=== PATIENT | male | born 1965 | race Caucasian/White ===

== ENCOUNTER 2017-08-08 06:33 | Day surgery (SDC) | payer BC ==
[~2017-08-08 06:33] MED LIST: Lactated Ringers 1,000 ML IV SCH
[2017-08-08] MEDS ORDERED: fentaNYL 100 MCG/2 ML SDV ONE (07:11)
[2017-08-08] MEDS ORDERED: Propofol 200 MG/20 ML SDV ONE ×2 (07:11→08:07)
[2017-08-08] MEDS ORDERED: Lidocaine 2% 5 ML SDV ONE (07:11)
[2017-08-08] MEDS ORDERED: Midazolam 1 MG/ML 2 ML SDV ONE (07:11)
--- NOTE | 2017-08-08 07:29 | PCM.PREANE ---
Preanesthetic Assessment - Anesthesia/Transfusion/Family Hx Anesthesia History: Prior Anesthesia Without Reaction Family History of Anesthesia Reaction: No Transfusion History: No Prior Transfusion(s) - Review of Systems General: No Symptoms Pulmonary: No Symptoms Cardiovascular: No Symptoms Gastrointestinal: No Symptoms Neurological: No Symptoms Other: Reports: None - Physical Assessment NPO Status Date: 08/07/17 O2 Sat by Pulse Oximetry: 94 Respiratory Rate: 16 Vital Signs: Last Vital Signs Temp 36.1 C 08/08/17 07:04 Pulse 97 08/08/17 07:04 Resp 16 08/08/17 07:04 BP 123/69 08/08/17 07:04 Pulse Ox 94 L 08/08/17 07:04 Height: 1.78 m Weight: 115.212 kg ASA Class: 2 Mental Status: Alert & Oriented x3 Airway Class: Mallampati = 1 Dentition: Reports: Normal Dentition ROM/Head Extension: Full Lungs: Clear to Auscultation, Normal Respiratory Effort Cardiovascular: Regular Rate, Regular Rhythm - Allergies Allergies/Adverse Reactions: Allergies Allergy/AdvReac Type Severity Reaction Status Date / Time No Known Allergies Allergy Verified 08/03/17 13:25 - Anesthesia Plan Pre-Op Medication Ordered: None - Acknowledgements Anesthesia Type Planned: MAC Pt an Appropriate Candidate for the Planned Anesthesia: Yes Alternatives and Risks of Anesthesia Discussed w Pt/Guardian: Yes Pt/Guardian Understands and Agrees with Anesthesia Plan: Yes Additional Comments: Hx of seizure disorder, no seizure for last 22 years. PreAnesthesia Questionnaire - Past Health History Medical/Surgical History: Denies Medical/Surgical History HEENT History: Reports: Other (See Below) Other HEENT History: wears glasses Cardiovascular History: Reports: None Respiratory History: Reports: None Gastrointestinal History: Reports: Cholelithiasis, GERD Genitourinary History: Reports: None Musculoskeletal History: Reports: Back Pain, Chronic Neurological History: Reports: Seizure Other Neuro History: Pt had 2 grand mal seizures 20 years ago and has not had one since. Psychiatric History: Reports: None Endocrine/Metabolic History: Reports: Obesity/BMI 30+ Hematologic History: Reports: None Immunologic History: Reports: None Oncologic (Cancer) History: Reports: None Dermatologic History: Reports: None - Infectious Disease History Infectious Disease History: Reports: Chicken Pox - Past Surgical History Head Surgeries/Procedures: Reports: None HEENT Surgical History: Reports: None Cardiovascular Surgical History: Reports: None Respiratory Surgical History: Reports: None GI Surgical History: Reports: None Male Surgical History: Reports: None Endocrine Surgical History: Reports: None Neurological Surgical History: Reports: None Musculoskeletal Surgical History: Reports: Carpal Tunnel, Shoulder Surgery, Other (See Below) Other Musculoskeletal Surgeries/Procedures:: Low back surgery, rotator cuff repair Dermatological Surgical History: Reports: None - SUBSTANCE USE Smoking Status *Q: Never Smoker Tobacco Use Within Last Twelve Months:  Second Hand Smoke Exposure: No Recreational Drug Use History: No - HOME MEDS Home Medications: Home Meds Phenytoin Sodium Extended [Dilantin] 300 mg PO BID 07/13/15 [History] Naproxen Sodium [Aleve] 220 mg PO ASDIRECTED PRN 07/30/15 [History] Acetaminophen [Acetaminophen Extra Strength] 2 tab PO ASDIRECTED PRN 08/03/17 [ History] Cholecalciferol (Vitamin D3) [Vitamin D3] 2,000 units PO DAILY 08/03/17 [History ] Fish Oil/DHA/EPA [Fish Oil 1,200 MG] 1 tab PO DAILY 08/03/17 [History] Ibuprofen 2 tab PO ASDIRECTED PRN 08/03/17 [History] - CURRENT (IN HOUSE) MEDS Current Meds: Current Medications Lactated Ringer's (Ringers, Lactated) 1,000 mls @ 125 mls/hr IV ASDIRECTED OSMAN Last Admin: 08/08/17 07:02 Dose: 125 mls/hr Discontinued Medications Fentanyl (Sublimaze) Confirm Administered Dose 100 mcg .ROUTE .STK-MED ONE Stop: 08/08/17 07:12 Lidocaine (Xylocaine-Mpf 2%) Confirm Administered Dose 5 ml .ROUTE .STK-MED ONE Stop: 08/08/17 07:12 Midazolam HCl (Versed 1 Mg/Ml) Confirm Administered Dose 2 mg .ROUTE .STK-MED ONE Stop: 08/08/17 07:12 Propofol (Diprivan 20 Ml) Confirm Administered Dose 400 mg .ROUTE .STK-MED ONE Stop: 08/08/17 07:12
[2017-08-08] MEDS ORDERED: Ondansetron 4 MG Tab.DIS PO PRN (08:39)
--- NOTE | 2017-08-08 08:44 | PCM.OPNOTE ---
- General Post-Op/Procedure Note Date of Surgery/Procedure: 08/08/17 Operative Procedure(s): Esophagogastroduodenoscopy with biopsy. Colonoscopy with cold ascending colon polypectomy Pre Op Diagnosis: Abdominal pain with progressive nocturnal heartburn. Desire for colorectal cancer screening. Post-Op Diagnosis: Mild duodenitis and gastritis. Ascending colon polyp. Anesthesia Technique: MAC (ASA II) Primary Surgeon: Aleksandr Beckford Transplant Immunologist: Basim Desir Condition: Good Free Text/Narrative:: Dictation [id number] CPT CODE [id number]
[2017-08-08] MEDS ORDERED: Lactated Ringers 1,000 ML IV SCH (09:00)
--- NOTE | 2017-08-08 09:21 | PCM.POSTAN ---
POST ANESTHESIA ASSESSMENT - MENTAL STATUS Mental Status: Alert, Oriented - RESPIRATORY Respiratory Status: Respiratory Rate WNL, Airway Patent, O2 Saturation Stable - CARDIOVASCULAR CV Status: Pulse Rate WNL, Blood Pressure Stable - GASTROINTESTINAL GI Status: No Symptoms - POST OP HYDRATION Hydration Status: Adequate & Stable
--- NOTE | 2017-08-08 09:21 | PCM48HPAN ---
Post Anesthesia Note - EVALUATION WITHIN 48HRS OF ANESTHETIC Vital Signs in Normal Range: Yes Patient Participated in Evaluation: Yes Respiratory Function Stable: Yes Airway Patent: Yes Cardiovascular Function Stable: Yes Hydration Status Stable: Yes Pain Control Satisfactory: Yes Nausea and Vomiting Control Satisfactory: Yes Mental Status Recovered: Yes Resp Rate: 13
[2017-08-08 09:23] VITALS: BP 122/66
--- NOTE | 2017-08-08 11:09 | OR ---
SURGEON: Aleksandr Beckford M.D. DATE OF PROCEDURE: 08/08/2017 OPERATION PERFORMED: Esophagogastroduodenoscopy with biopsy. RECORD TABULATING CLERK: Dr. Desir, PGY3. ANESTHESIA: MAC. [place] [employer] CLASSIFICATION: II. PREOPERATIVE DIAGNOSIS: Persistent abdominal pain with nocturnal heartburn. POSTOPERATIVE DIAGNOSIS: Mild gastritis. DESCRIPTION OF PROCEDURE: The patient was taken to the endoscopy room, positioned on the endoscopy table in the supine position. Time-out was called for appropriate identification of the patient and procedure. Monitored anesthesia care was provided. The bite block was placed between the patient's teeth. The gastroscope was inserted through the bite block into the oropharynx and advanced without difficulty through the esophagus and stomach into the duodenum where examination was now carried out in a retrograde fashion. The duodenum does show some mild inflammatory changes and biopsies were obtained. The gastroscope was withdrawn to the stomach that does show mild gastritis. Antral biopsies were obtained to look for the presence of Helicobacter pylori. The gastroscope was then retroflexed to visualize the proximal stomach. No hiatal hernia was noted. As the scope was withdrawn, the stomach was aspirated. The GE junction was well defined and shows no acute inflammatory changes or ulcerations. The esophagus demonstrated good contractility. No mid or proximal lesions were identified. The vocal cords were visualized as the scope was withdrawn and noted to move symmetrically. The gastroscope was then removed. The patient tolerated this portion of the procedure well. Following colonoscopy, he was taken to recovery room in stable condition. EMELYN / ERIC /[id number]
--- NOTE | 2017-08-08 11:15 | OR ---
SURGEON: Aleksandr Beckford M.D. DATE OF PROCEDURE: 08/08/2017 OPERATION PERFORMED: Colonoscopy with cold ascending colon polypectomy. ORNAMENTAL METAL ERECTOR APPRENTICE: Dr. Desir, PGY3. ANESTHESIA: MAC. [place] [employer] CLASSIFICATION: II. PREOPERATIVE DIAGNOSIS: Desire for colorectal cancer screening. POSTOPERATIVE DIAGNOSIS: Ascending colon polyp. DESCRIPTION OF PROCEDURE: With the patient having completed esophagogastroduodenoscopy, he was now positioned in the left lateral decubitus position. The colonoscope was inserted into the rectum and advanced with minimal difficulty to the cecum where the colonoscope was retroflexed to visualize the ascending colon from below. The colonoscope was then straightened and slowly withdrawn. One small polyp was encountered in the ascending colon and removed with cold biopsy forceps. The remainder of the ascending colon, hepatic flexure, transverse colon, splenic flexure, descending colon, sigmoid colon, and rectum were well visualized. No tumors, polyps, diverticula, or angiodysplastic changes were noted anywhere in the lower gastrointestinal tract. Once the colonoscope was withdrawn to the rectum, it was retroflexed to visualize the anal orifice from above. Again no tumors or polyps were seen and there were no acute hemorrhoidal changes. The colonoscope was then straightened, the rectum aspirated, and the colonoscope removed. The patient tolerated the procedure well and was taken to recovery room in stable condition. EMELYN REYES /[id number]
== END 2017-08-08 09:10 | disposition home or self-care (01) ==
LOC: MW.SDS 06:33
PROVIDERS: ATTEND Surgery
DX: Z12.11 Encounter for screening for malignant neoplasm of colon (principal); K29.50 Unspecified chronic gastritis without bleeding; K63.5 Polyp of colon; G40.909 Epilepsy, unspecified, not intractable, without status epilepticus; K21.9 Gastro-esophageal reflux disease without esophagitis; E66.9 Obesity, unspecified; Z79.899 Other long term (current) drug therapy; Z83.71 Family history of colonic polyps; Z68.36 Body mass index [BMI] 36.0-36.9, adult
CPT/HCPCS: 43239; 45380; 88305; 88312; J2250; J3010; J7120; J2704

== ENCOUNTER 2017-08-13 06:23 | Day surgery (SDC) | payer BC ==
[~2017-08-13 06:23] MED LIST changes: +cefOXitin 2 GM in Premix Bag 1 BAG IV ONE
[2017-08-13] MEDS ORDERED: Scopolamine 1.5 MG Transdermal Patch TRDERM PRN (07:09)
--- NOTE | 2017-08-13 07:11 | PCM.PREANE ---
Preanesthetic Assessment - Anesthesia/Transfusion/Family Hx Anesthesia History: Prior Anesthesia Without Reaction Family History of Anesthesia Reaction: No Transfusion History: No Prior Transfusion(s) - Review of Systems General: No Symptoms Pulmonary: No Symptoms Cardiovascular: No Symptoms Gastrointestinal: No Symptoms Neurological: No Symptoms Other: Reports: None - Physical Assessment NPO Status Date: 08/12/17 Height: 1.78 m Weight: 115.212 kg ASA Class: 2 Mental Status: Alert & Oriented x3 Airway Class: Mallampati = 1 Dentition: Reports: Normal Dentition ROM/Head Extension: Full Lungs: Clear to Auscultation, Normal Respiratory Effort Cardiovascular: Regular Rate, Regular Rhythm - Allergies Allergies/Adverse Reactions: Allergies Allergy/AdvReac Type Severity Reaction Status Date / Time No Known Allergies Allergy Verified 08/08/17 09:10 - Anesthesia Plan Pre-Op Medication Ordered: Other (scop) - Acknowledgements Anesthesia Type Planned: General Anesthesia Pt an Appropriate Candidate for the Planned Anesthesia: Yes Alternatives and Risks of Anesthesia Discussed w Pt/Guardian: Yes Pt/Guardian Understands and Agrees with Anesthesia Plan: Yes PreAnesthesia Questionnaire - Past Health History Medical/Surgical History: Denies Medical/Surgical History HEENT History: Reports: None Other HEENT History: wears glasses Cardiovascular History: Reports: None Respiratory History: Reports: None Gastrointestinal History: Reports: None Genitourinary History: Reports: None Musculoskeletal History: Reports: Back Pain, Chronic Neurological History: Reports: Seizure Other Neuro History: Pt had 2 grand mal seizures 19years ago and has not had one since. Psychiatric History: Reports: None Endocrine/Metabolic History: Reports: None Hematologic History: Reports: None Immunologic History: Reports: None Oncologic (Cancer) History: Reports: None Dermatologic History: Reports: None - Infectious Disease History Infectious Disease History: Reports: Chicken Pox - Past Surgical History Head Surgeries/Procedures: Reports: None HEENT Surgical History: Reports: None Cardiovascular Surgical History: Reports: None GI Surgical History: Reports: Colonoscopy Male Surgical History: Reports: None Endocrine Surgical History: Reports: None Neurological Surgical History: Reports: None Musculoskeletal Surgical History: Reports: Carpal Tunnel, Other (See Below) Other Musculoskeletal Surgeries/Procedures:: Low back surgery Dermatological Surgical History: Reports: None - SUBSTANCE USE Smoking Status *Q: Never Smoker Tobacco Use Within Last Twelve Months: Smokeless Tobacco Second Hand Smoke Exposure: No Recreational Drug Use History: No - HOME MEDS Home Medications: Home Meds Phenytoin Sodium Extended [Dilantin] 300 mg PO BID 07/13/15 [History] Naproxen Sodium [Aleve] 220 mg PO ASDIRECTED PRN 07/30/15 [History] Acetaminophen [Acetaminophen Extra Strength] 2 tab PO ASDIRECTED PRN 08/03/17 [ History] Cholecalciferol (Vitamin D3) [Vitamin D3] 2,000 units PO DAILY 08/03/17 [History ] Fish Oil/DHA/EPA [Fish Oil 1,200 MG] 1 tab PO DAILY 08/03/17 [History] Ibuprofen 2 tab PO ASDIRECTED PRN 08/03/17 [History] - CURRENT (IN HOUSE) MEDS Current Meds: Current Medications Lactated Ringer's (Ringers, Lactated) 1,000 mls @ 125 mls/hr IV ASDIRECTED OSMAN Scopolamine (Transderm-Scop) 1.5 mg TRDERM Q72H PRN PRN Reason: Nausea Discontinued Medications Cefoxitin Sodium 2 gm/ Premix 50 mls @ 100 mls/hr IV ONETIME ONE Stop: 08/13/17 06:29
[2017-08-13] MEDS ORDERED: Propofol 200 MG/20 ML SDV ONE ×2 (07:21→08:59)
[2017-08-13] MEDS ORDERED: fentaNYL 100 MCG/2 ML SDV ONE ×2 (07:21→08:49)
[2017-08-13] MEDS ORDERED: Lidocaine 2% 5 ML SDV ONE (07:21)
[2017-08-13] MEDS ORDERED: Midazolam 1 MG/ML 2 ML SDV ONE (07:22)
[2017-08-13] MEDS ORDERED: ceFAZolin 1 GM Vial ONE (07:25)
[2017-08-13] MEDS ORDERED: Bupivacaine 0.5% 10 ML SDV ONE (07:25)
[2017-08-13] MEDS ORDERED: Ondansetron 4 MG/2 ML SDV ONE (07:31)
[2017-08-13] MEDS ORDERED: Neostigmine Methylsulfate 1 MG/ML 5 ML Syringe ONE (07:31)
[2017-08-13] MEDS ORDERED: Ketorolac 30 MG/ML SDV ONE (07:31)
[2017-08-13] MEDS ORDERED: Rocuronium 10 MG/ML 10 ML Syringe ONE (07:31)
[2017-08-13] MEDS ORDERED: Glycopyrrolate 0.2 MG/ML SDV ONE (07:31)
[2017-08-13] MEDS ORDERED: ePHEDrine 50 MG/ML SDV ONE ×2 (08:26→08:58)
[2017-08-13] MEDS ORDERED: Ondansetron 4 MG Tab.DIS PO PRN (09:50)
[2017-08-13] MEDS ORDERED: Acetaminophen/oxyCODONE 325-5 MG Tab PO PRN (09:51)
[2017-08-13] MEDS ORDERED: Acetaminophen/HYDROcodone 325-5 MG Tab PO PRN (09:55)
[2017-08-13] MEDS ORDERED: Morphine 10 MG/ML Syringe IVPUSH PRN (09:55)
--- NOTE | 2017-08-13 09:58 | PCM.OPNOTE ---
- General Post-Op/Procedure Note Date of Surgery/Procedure: 08/13/17 Operative Procedure(s): Laparoscopic cholecystectomy Pre Op Diagnosis: Cholelithiasis Post-Op Diagnosis: Cholelithiasis Anesthesia Technique: General ET Tube (ASA II) Primary Surgeon: Aleksandr Beckford Cocoa Roaster: Basim Desir Condition: Good Free Text/Narrative:: Dictation [id number] CPT CODE [id number]
[2017-08-13] MEDS ORDERED: HYDROmorphone 2 MG/ML Syringe IVPUSH ONE (09:59)
[2017-08-13] MEDS ORDERED: fentaNYL 100 MCG/2 ML SDV IVPUSH PRN (09:59)
[2017-08-13] MEDS ORDERED: Lactated Ringers 1,000 ML IV SCH (10:00)
--- NOTE | 2017-08-13 11:32 | PCM48HPAN ---
Post Anesthesia Note - EVALUATION WITHIN 48HRS OF ANESTHETIC Vital Signs in Normal Range: Yes Patient Participated in Evaluation: Yes Respiratory Function Stable: Yes Airway Patent: Yes Cardiovascular Function Stable: Yes Hydration Status Stable: Yes Pain Control Satisfactory: Yes Nausea and Vomiting Control Satisfactory: Yes Mental Status Recovered: Yes Resp Rate: 19
--- NOTE | 2017-08-13 11:55 | OR ---
SURGEON: Aleksandr Beckford M.D. DATE OF PROCEDURE: 08/13/2017 OPERATION PERFORMED: Laparoscopic cholecystectomy. DRY CLEANING SUPERVISOR: Dr. Desir PGY3. ANESTHESIA: General endotracheal. [place] [employer] CLASSIFICATION: II. PREOPERATIVE DIAGNOSIS: Symptomatic cholelithiasis. POSTOPERATIVE DIAGNOSIS: Cholelithiasis with cholecystitis. ESTIMATED BLOOD LOSS: 50 mL. INTRAOPERATIVE FLUID REPLACEMENT: 2300 mL of crystalloid. DESCRIPTION OF PROCEDURE: The patient was taken to the operating room, placed on the operating table in the supine position. Time-out was called for appropriate identification of the patient and procedure. Thigh-high TEDs and sequential compression boots were placed. Following satisfactory attainment of general endotracheal anesthesia, a Platt catheter was placed in the patient's urinary bladder. The abdomen was prepped with DuraPrep solution. Sterile drapes were applied. The skin just underneath the umbilicus was infiltrated with 0.5% Marcaine solution. The skin incision was made and deepened through the subcutaneous tissue obtaining hemostasis with the use of electrocautery. Veress needle was introduced into the peritoneal cavity. Saline drop test was positive. Carbon dioxide pneumoperitoneum was established with the relief set at 13 cm of water. Once a satisfactory pneumoperitoneum was established, 5 mm camera and port were placed through the infraumbilical incision. The patient was positioned with his feet down and rolled to the left. Under camera vision, 12 mm subxiphoid, 5 mm midclavicular, and 5 mm anterior axillary ports were placed. Each incision had preemptively been infiltrated with 0.5% Marcaine solution. The gallbladder was grasped and cholecystohepatic triangle was dissected free identifying the cystic duct and cystic artery. These structures were serially hemoclipped and then divided with the laparoscopic Metzenbaum scissor. The gallbladder was then dissected away from its bed using electrocautery. Care was taken not to spill any bile. Once the gallbladder was amputated, this was placed in an Endopouch. There was a very large stone and it did require enlarging the incision to ultimately remove the Endopouch containing gallbladder. Prior to doing that, the bed of the gallbladder was inspected and small bleeding sites were electrocoagulated. The wound was irrigated with sterile saline solution. All fluid was aspirated. Surgicel was placed into the bed of the gallbladder. The right hemidiaphragm was then irrigated with 250 mL of saline containing 20 mL of 0.5% Marcaine solution. That fluid was left in place. Now our attention was turned to removing the gallbladder. We did attempt to just simply expand the incision with a Ashley clamp, but we did have to incise the fascia to remove the Endopouch containing gallbladder. We also did open the pouch and opened the gallbladder and tried to aspirate fluid. There was thick green bile present. Once we were able to extend the incision and get the gallbladder out, the wound was inspected for hemostasis, then carefully irrigated with sterile saline solution. The subxiphoid incision fascia was closed with interrupted 0 Ethibond sutures. The wounds were then inspected for hemostasis, irrigated, and no other bleeding was noted. All wounds were then closed with skin stefany and dressed with sterile Tegaderm pads. Platt catheter was removed prior to emergence from anesthesia. Sponge, needle, and instrument counts were all correct. Following emergence from anesthesia and extubation, the patient was taken to recovery room in stable condition. EMELYN / ERIC /[id number]
[2017-08-13 13:09] VITALS: BP 121/68
== END 2017-08-13 12:00 | disposition home or self-care (01) ==
LOC: MW.SDS 06:23
PROVIDERS: ATTEND Surgery
DX: K80.10 Calculus of gallbladder with chronic cholecystitis without obstruction (principal); Z79.899 Other long term (current) drug therapy
CPT/HCPCS: 47562; A9270; J1885; J2250; J2405; J3010; J7120; 00790; 88304; J0690; J2704

== ENCOUNTER 2017-10-15 11:00 | Emergency (ER) | payer BC, OTHER ==
[2017-10-15] MEDS ORDERED: Morphine 4 MG/ML Syringe IVPUSH ONE (11:37)
[2017-10-15] MEDS ORDERED: Sodium Chloride 0.9% 10 ML Syringe FLUSH PRN (11:37)
[2017-10-15] MEDS ORDERED: Ondansetron 4 MG/2 ML SDV IVPUSH ONE (11:37)
[2017-10-15] MEDS ORDERED: Sodium Chloride 0.9% 2.5 ML Syringe FLUSH PRN (11:37)
--- NOTE | 2017-10-15 11:42 | EDM.PDOC ---
ED HPI GENERAL MEDICAL PROBLEM - General Chief Complaint: Back Pain or Injury Stated Complaint: BACK PAIN Time Seen by Provider: 10/15/17 11:40 Source of Information: Reports: Patient History Limitations: Reports: No Limitations - History of Present Illness INITIAL COMMENTS - FREE TEXT/NARRATIVE: HISTORY AND PHYSICAL: [] 52-year-old male presenting with lower back pain History of Present Illness: []Patient has history of discectomy 12 years ago and this feels like the pain he had prior to that Patient bent over about an hour ago and was unable to straighten out Review of Systems: As per history of present illness and below otherwise all systems reviewed and negative. Past medical history: As per history of present illness and as reviewed below otherwise noncontributory. Surgical history: As per history of present illness and as reviewed below otherwise noncontributory. Social history: No reported history of drug or alcohol abuse. Family history: As per history of present illness and as reviewed below otherwise noncontributory. Physical exam: Oriented gentleman answering questions appropriately in full sentences without any shortness of breath and reluctant to move HEENT: Atraumatic, normocehpalic, pupils reactive, negative for conjunctival pallor or scleral icterus, mucous membranes moist, throat clear, neck supple, nontender, trachea midline. Lungs: Clear to auscultation, breath sounds equal bilaterally, chest non tender. Heart: S1S2, regular, negative for clicks, rubs, or JVD. Abdomen: Soft, nondistended, nontender. Negative for masses or hepatossplenmegaly. Negative for costovertebral tenderness. Pelvis: Stable nontender. Genitourinary: Deferred. Rectal: Deferred Extremities: Atraumatic, negative for cords or calf pain. Neurovascular unremarkable. Neuro: Awake, alert, oriented. Cranial nerves II through XII unremarkable. Cerebellum unremarkable. Motor and sensory unremarkable throughout. Exam nonfocal. Improvement noted with the pain medication given Diagnostics: []CBC CMP LS-spine x-ray Therapeutics: []Saline lock Morphine Zofran Impression: [] Low back pain Plan: []Discharged home Pain medication handwritten Follow-up with your primary care provider Return to the emergency room as directed and discussed Definitive disposition and diagnosis as appropriate pending reevaluation and review of above. Onset: Today, Sudden Duration: Hour(s):, Getting Worse Location: Reports: Back Quality: Reports: Stabbing Severity: Severe Improves with: Reports: None Worsens with: Reports: None lower back, right hip, right leg Pain Score (Numeric/FACES): 8 - Related Data Allergies Allergy/AdvReac Type Severity Reaction Status Date / Time No Known Allergies Allergy Verified 10/15/17 11:21 Home Meds: Home Meds Phenytoin Sodium Extended [Dilantin] 300 mg PO BID 07/13/15 [History] Naproxen Sodium [Aleve] 220 mg PO ASDIRECTED PRN 07/30/15 [History] Acetaminophen [Acetaminophen Extra Strength] 2 tab PO ASDIRECTED PRN 08/03/17 [ History] Cholecalciferol (Vitamin D3) [Vitamin D3] 2,000 units PO DAILY 08/03/17 [History ] Fish Oil/DHA/EPA [Fish Oil 1,200 MG] 1 tab PO DAILY 08/03/17 [History] Ibuprofen 2 tab PO ASDIRECTED PRN 08/03/17 [History] Past Medical History - Past Health History Medical/Surgical History: Denies Medical/Surgical History HEENT History: Reports: Other (See Below) Other HEENT History: wears glasses Cardiovascular History: Reports: None Respiratory History: Reports: None Gastrointestinal History: Reports: Cholelithiasis, GERD Genitourinary History: Reports: None Musculoskeletal History: Reports: Back Pain, Chronic Neurological History: Reports: Seizure Other Neuro History: Pt had 2 grand mal seizures 20 years ago and has not had one since. Psychiatric History: Reports: None Endocrine/Metabolic History: Reports: Obesity/BMI 30+ Hematologic History: Reports: None Immunologic History: Reports: None Oncologic (Cancer) History: Reports: None Dermatologic History: Reports: None - Infectious Disease History Infectious Disease History: Reports: Chicken Pox - Past Surgical History Head Surgeries/Procedures: Reports: None Cardiovascular Surgical History: Reports: None Respiratory Surgical History: Reports: None GI Surgical History: Reports: Cholecystectomy Male Surgical History: Reports: None Musculoskeletal Surgical History: Reports: Carpal Tunnel, Shoulder Surgery, Other (See Below) Other Musculoskeletal Surgeries/Procedures:: Low back surgery, rotator cuff repair Dermatological Surgical History: Reports: None Social & Family History - Family History Family Medical History: Noncontributory HEENT: Reports: Hearing Impairment, Impaired Vision Cardiac: Reports: Afib, Heart Failure, High Cholesterol, Hypertension : Reports: Renal Disease/Insufficiency OBGYN: Reports: Musculoskeletal: Reports: Arthritis, Osteoarthritis, Osteoporosis Oncologic: Reports: Leukemia, Other (See Below) Other Oncologic Family History: throat cancer - Tobacco Use Smoking Status *Q: Never Smoker Second Hand Smoke Exposure: No - Caffeine Use Caffeine Use: Reports: Energy Drinks - Recreational Drug Use Recreational Drug Use: No ED ROS GENERAL - Review of Systems Review Of Systems: ROS reveals no pertinent complaints other than HPI. ED EXAM,LOWER BACK PAIN/INJURY - Physical Exam Exam: See Below (see dictation) Course - Vital Signs Last Recorded V/S: Last Vital Signs Temp 36.2 C 10/15/17 11:19 Pulse 79 10/15/17 11:19 Resp 16 10/15/17 11:19 BP 134/87 10/15/17 11:19 Pulse Ox 96 10/15/17 11:19 - Orders/Labs/Meds Orders: Active Orders 24 hr Category Date Time Status Sodium Chloride 0.9% [Saline Flush] Med 10/15/17 11:37 Active 10 ml FLUSH ASDIRECTED PRN Sodium Chloride 0.9% [Saline Flush] Med 10/15/17 11:37 Active 2.5 ml FLUSH ASDIRECTED PRN Saline Lock Insert [OM.PC] Stat Oth 10/15/17 11:36 Ordered Medication Orders Sodium Chloride (Saline Flush) 10 ml FLUSH ASDIRECTED PRN PRN Reason: Keep Vein Open Sodium Chloride (Saline Flush) 2.5 ml FLUSH ASDIRECTED PRN PRN Reason: Keep Vein Open Labs: Laboratory Tests 10/15/17 10/15/17 Range/Units 11:50 11:50 WBC 6.29 (4.0-11.0) K/uL RBC 5.12 (4.50-5.90) M/uL Hgb 16.5 (13.0-17.0) g/dL Hct 45.1 (38.0-50.0) % MCV 88.1 (80.0-98.0) fL MCH 32.2 H (27.0-32.0) pg MCHC 36.6 (31.0-37.0) g/dL RDW Std Deviation 42.7 (28.0-62.0) fl RDW Coeff of Zehra 13 (11.0-15.0) % Plt Count 164 (150-400) K/uL MPV 10.60 (7.40-12.00) fL Neut % (Auto) 62.4 (48.0-80.0) % Lymph % (Auto) 31.5 (16.0-40.0) % [place] % (Auto) 5.2 (0.0-15.0) % Eos % (Auto) 0.6 (0.0-7.0) % Baso % (Auto) 0.3 (0.0-1.5) % Neut # (Auto) 3.9 (1.4-5.7) K/uL Lymph # (Auto) 2.0 (0.6-2.4) K/uL [place] # (Auto) 0.3 (0.0-0.8) K/uL Eos # (Auto) 0.0 (0.0-0.7) K/uL Baso # (Auto) 0.0 (0.0-0.1) K/uL Nucleated RBC % 0.0 /100WBC Nucleated RBCs # 0 K/uL Sodium 137 (136-148) mmol/L Potassium 3.8 (3.5-5.1) mmol/L Chloride 105 (98-107) mmol/L Carbon Dioxide 24.8 (21.0-32.0) mmol/L BUN 13 (7.0-18.0) mg/dL Creatinine 1.1 (0.8-1.3) mg/dL Est Cr Clr Drug Dosing 79.27 mL/min Estimated GFR (MDRD) > 60.0 ml/min Glucose 132 H (74-106) mg/dL Calcium 9.3 (8.5-10.1) mg/dL Total Bilirubin 0.4 (0.2-1.0) mg/dL AST 31 (15-37) IU/L ALT 55 (14-63) IU/L Alkaline Phosphatase 81 (46-116) U/L Total Protein 7.3 (6.4-8.2) g/dL Albumin 4.2 (3.4-5.0) g/dL Globulin 3.1 (2.0-3.5) g/dL Albumin/Globulin Ratio 1.4 (1.3-2.8) Meds: Medications Generic Name Dose Route Start Last Admin Trade Name Freq PRN Reason Stop Dose Admin Sodium Chloride 10 ml 10/15/17 11:37 Saline Flush FLUSH ASDIRECTED PRN Keep Vein Open Sodium Chloride 2.5 ml 10/15/17 11:37 Saline Flush FLUSH ASDIRECTED PRN Keep Vein Open Discontinued Medications Generic Name Dose Route Start Last Admin Trade Name Sp PRN Reason Stop Dose Admin Morphine Sulfate 4 mg 10/15/17 11:37 10/15/17 11:49 Morphine IVPUSH 10/15/17 11:38 4 mg ONETIME ONE Administration Ondansetron HCl 4 mg 10/15/17 11:37 10/15/17 11:49 Zofran IVPUSH 10/15/17 11:38 4 mg ONETIME ONE Administration Departure - Departure Time of Disposition: 13:13 Disposition: Home, Self-Care 01 Condition: Good Clinical Impression: Low back pain Qualifiers: Chronicity: acute Back pain laterality: midline Sciatica presence: without sciatica Qualified Code(s): M54.5 - Low back pain - Discharge Information Instructions: Back Injury Prevention, [id number], Back Exercises, Easy-to- Read, Back Pain, Adult, [id number] Referrals: Saman Durant MD [Primary Care Provider] - Forms: ED Department Discharge Additional Instructions: The following information is given to patients seen in the emergency department who are being discharged to home. This information is to outline your options for follow-up care. We provide all patients seen in our emergency department with a follow-up referral. The need for follow-up, as well as the timing and circumstances, are variable depending upon the specifics of your emergency department visit. If you don't have a primary care physician on staff, we will provide you with a referral. We always advise you to contact your personal physician following an emergency department visit to inform them of the circumstance of the visit and for follow-up with them and/or the need for any referrals to a consulting specialist. The emergency department will also refer you to a specialist when appropriate. This referral assures that you have the opportunity for followup care with a specialist. All of these measure are taken in an effort to provide you with optimal care, which includes your followup. Under all circumstances we always encourage you to contact your private physician who remains a resource for coordinating your care. When calling for followup care, please make the office aware that this follow-up is from your recent emergency room visit. If for any reason you are refused follow-up, please contact the [facility] emergency department at and asked to speak to the emergency department charge nurse. Follow-up with Dr. Durant in 3 days Pain medication has been written for prescription hydrocodone/APAP 10 mg 1 tablet 3 times a day when necessary pain#12NR Follow up in ER as directed and discussed Axial 10 mg 3 times a day when necessary muscle spasms #12NR - My Orders Last 24 Hours: My Active Orders 10/15/17 11:36 Saline Lock Insert [OM.PC] Stat 10/15/17 11:37 Sodium Chloride 0.9% [Saline Flush] 10 ml FLUSH ASDIRECTED PRN Sodium Chloride 0.9% [Saline Flush] 2.5 ml FLUSH ASDIRECTED PRN - Assessment/Plan Last 24 Hours: My Active Orders 10/15/17 11:36 Saline Lock Insert [OM.PC] Stat 10/15/17 11:37 Sodium Chloride 0.9% [Saline Flush] 10 ml FLUSH ASDIRECTED PRN Sodium Chloride 0.9% [Saline Flush] 2.5 ml FLUSH ASDIRECTED PRN
[2017-10-15 12:33] LABS: CHLORIDE,CL 105 mmol/L (98-107); SODIUM,NA 137 mmol/L (136-148)
--- NOTE | 2017-10-15 12:48 | CR ---
EXAMINATION: Lumbar spine HISTORY: Pain COMPARISON: 07/27/2017 TECHNIQUE: AP and lateral views FINDINGS: The lumbar spinal alignment is grossly unremarkable. Vertebral body heights and disc spaces appear maintained. No fracture or acute osseous or metallic. Bone mineralization and normal. Mild to moderate marginal osteophytes are noted. SI joints are symmetric. IMPRESSION: Mild degenerative changes without acute findings.
[2017-10-15 19:31] VITALS: BP 129/72
== END 2017-10-15 13:30 | disposition home or self-care (01) ==
LOC: MW.ED 11:00
DX: M54.5 Low back pain (principal); K21.9 Gastro-esophageal reflux disease without esophagitis; E66.9 Obesity, unspecified; Z79.899 Other long term (current) drug therapy; Z68.35 Body mass index [BMI] 35.0-35.9, adult
CPT/HCPCS: 36415; 72100; 80053; 85025; 96374; 96375; 99284; J2270; J2405; 99283

== ENCOUNTER 2017-10-16 09:52 | Observation (INO) | payer BC ==
--- NOTE | 2017-10-16 10:16 | EDM.PDOC ---
ED HPI GENERAL MEDICAL PROBLEM - General Chief Complaint: Back Pain or Injury Stated Complaint: BACK PAIN Time Seen by Provider: 10/16/17 10:03 - History of Present Illness INITIAL COMMENTS - FREE TEXT/NARRATIVE: HISTORY AND PHYSICAL: History of present illness: Patient's 52-year-old male presents with concern of low back pain he was seen in emergency department initially put on hydrocodone and Flexeril he is scheduled to see his private doctor today at 3 PM he denies numbness weakness incontinence or retention [place] E does have a remote history of low back surgery 15 years prior he denies any new or recent trauma or other concern. Review of systems: As per history of present illness and below otherwise all systems reviewed and negative. Past medical history: As per history of present illness and as reviewed below otherwise noncontributory. Surgical history: As per history of present illness and as reviewed below otherwise noncontributory. Social history: No reported history of drug or alcohol abuse. Family history: As per history of present illness and as reviewed below otherwise noncontributory. Physical exam: HEENT: Atraumatic, normocephalic, pupils reactive, negative for conjunctival pallor or scleral icterus, mucous membranes moist, throat clear, neck supple, nontender, trachea midline. Lungs: Clear to auscultation, breath sounds equal bilaterally, chest nontender. Heart: S1S2, regular, negative for clicks, rubs, or JVD. Abdomen: Soft, nondistended, nontender. Negative for masses or hepatosplenomegaly. Negative for costovertebral tenderness. Pelvis: Stable nontender. Genitourinary: Deferred. Rectal: Deferred. Extremities: Atraumatic, negative for cords or calf pain. Neurovascular unremarkable. Neuro: Awake, alert, oriented. Cranial nerves II through XII unremarkable. Cerebellum unremarkable. Motor and sensory unremarkable throughout. Exam nonfocal. Back: Patient has some mild paravertebral tenderness level lumbar spine no vertebral body or point tenderness motor and sensory are normal deep tendon reflexes are normal. Diagnostics: CT LS spine UA Therapeutics: None Impression: 1 acute low back pain Definitive disposition and diagnosis as appropriate pending reevaluation and review of above. Back Pain Score (Numeric/FACES): 8 - Related Data Allergies Allergy/AdvReac Type Severity Reaction Status Date / Time No Known Allergies Allergy Verified 10/16/17 09:56 Home Meds: Home Meds Phenytoin Sodium Extended [Dilantin] 300 mg PO BID 07/13/15 [History] Past Medical History - Past Health History Medical/Surgical History: Denies Medical/Surgical History HEENT History: Reports: Other (See Below) Other HEENT History: wears glasses Cardiovascular History: Reports: None Respiratory History: Reports: None Gastrointestinal History: Reports: Cholelithiasis, GERD Genitourinary History: Reports: None Musculoskeletal History: Reports: Back Pain, Chronic Neurological History: Reports: Seizure Other Neuro History: Pt had 2 grand mal seizures 20 years ago and has not had one since. Psychiatric History: Reports: None Endocrine/Metabolic History: Reports: Obesity/BMI 30+ Hematologic History: Reports: None Immunologic History: Reports: None Oncologic (Cancer) History: Reports: None Dermatologic History: Reports: None - Infectious Disease History Infectious Disease History: Reports: Chicken Pox - Past Surgical History Head Surgeries/Procedures: Reports: None Cardiovascular Surgical History: Reports: None Respiratory Surgical History: Reports: None GI Surgical History: Reports: Cholecystectomy Male Surgical History: Reports: None Musculoskeletal Surgical History: Reports: Carpal Tunnel, Shoulder Surgery, Other (See Below) Other Musculoskeletal Surgeries/Procedures:: Low back surgery, rotator cuff repair Dermatological Surgical History: Reports: None Social & Family History - Family History Family Medical History: Noncontributory HEENT: Reports: Hearing Impairment, Impaired Vision Cardiac: Reports: Afib, Heart Failure, High Cholesterol, Hypertension : Reports: Renal Disease/Insufficiency OBGYN: Reports: Musculoskeletal: Reports: Arthritis, Osteoarthritis, Osteoporosis Oncologic: Reports: Leukemia, Other (See Below) Other Oncologic Family History: throat cancer - Tobacco Use Smoking Status *Q: Never Smoker Second Hand Smoke Exposure: No - Caffeine Use Caffeine Use: Reports: Energy Drinks - Recreational Drug Use Recreational Drug Use: No ED ROS GENERAL - Review of Systems Review Of Systems: ROS reveals no pertinent complaints other than HPI. ED EXAM, GENERAL - Physical Exam Exam: See Below (See dictation) Course - Vital Signs Last Recorded V/S: Last Vital Signs Temp 36.3 C 10/16/17 10:00 Pulse 79 10/16/17 10:00 Resp 18 10/16/17 10:00 BP 147/84 H 10/16/17 10:00 Pulse Ox 95 10/16/17 10:00 - Orders/Labs/Meds Orders: Active Orders 24 hr Category Date Time Status Lumbar Spine wo Cont [CT] Stat Exams 10/16/17 10:05 Taken UA W/MICROSCOPIC [URIN] Stat Lab 10/16/17 10:40 Ordered Labs: Laboratory Tests 10/16/17 Range/Units 10:40 Urine Color YELLOW Urine Appearance CLEAR Urine pH 7.0 (5.0-8.0) Ur Specific [place] 1.020 (1.001-1.035) Urine Protein NEGATIVE (NEGATIVE) mg/dL Urine Glucose (UA) NEGATIVE (NEGATIVE) mg/dL Urine Ketones NEGATIVE (NEGATIVE) mg/dL Urine Occult Blood NEGATIVE (NEGATIVE) Urine Nitrite NEGATIVE (NEGATIVE) Urine Bilirubin NEGATIVE (NEGATIVE) Urine Urobilinogen 1.0 (<2.0) EU/dL Ur Leukocyte Esterase NEGATIVE (NEGATIVE) Urine RBC 0-1 (0-2/HPF) Urine WBC 0-2 (0-5/HPF) Ur Epithelial Cells RARE (NONE-FEW) Amorphous Sediment RARE (NEGATIVE) Urine Bacteria RARE (NEGATIVE) Meds: Medications Discontinued Medications Generic Name Dose Route Start Last Admin Trade Name Freq PRN Reason Stop Dose Admin Hydromorphone HCl 0.5 mg 10/16/17 12:15 10/16/17 12:36 Dilaudid IM 10/16/17 12:16 0.5 mg ONETIME ONE Administration Departure - Departure Time of Disposition: 14:20 Disposition: Home, Self-Care 01 Condition: Good Clinical Impression: Degenerative disc disease - Discharge Information Forms: ED Department Discharge Additional Instructions: The following information is given to patients seen in the emergency department who are being discharged to home. This information is to outline your options for follow-up care. We provide all patients seen in our emergency department with a follow-up referral. The need for follow-up, as well as the timing and circumstances, are variable depending upon the specifics of your emergency department visit. If you don't have a primary care physician on staff, we will provide you with a referral. We always advise you to contact your personal physician following an emergency department visit to inform them of the circumstance of the visit and for follow-up with them and/or the need for any referrals to a consulting specialist. The emergency department will also refer you to a specialist when appropriate. This referral assures that you have the opportunity for followup care with a specialist. All of these measure are taken in an effort to provide you with optimal care, which includes your followup. Under all circumstances we always encourage you to contact your private physician who remains a resource for coordinating your care. When calling for followup care, please make the office aware that this follow-up is from your recent emergency room visit. If for any reason you are refused follow-up, please contact the [facility] emergency department at and asked to speak to the emergency department charge nurse. Keep scheduled appointment at [address] Durant continue current medications return as needed as discussed - My Orders Last 24 Hours: My Active Orders 10/16/17 10:05 Lumbar Spine wo Cont [CT] Stat 10/16/17 10:40 UA W/MICROSCOPIC [URIN] Stat - Assessment/Plan Last 24 Hours: My Active Orders 10/16/17 10:05 Lumbar Spine wo Cont [CT] Stat 10/16/17 10:40 UA W/MICROSCOPIC [URIN] Stat
[2017-10-16] MEDS ORDERED: HYDROmorphone 2 MG/ML SDV IM ONE (12:15)
[2017-10-16] MEDS ORDERED: methylPREDNISolone Sodium Succinate 125 MG/2 ML SDV IVPUSH ONE (14:40)
[2017-10-16] MEDS ORDERED: Ondansetron 4 MG/2 ML SDV IVPUSH ONE (14:40)
[2017-10-16] MEDS ORDERED: HYDROmorphone 1 MG/ML Syringe IVPUSH ONE (14:40)
[2017-10-16] MEDS ORDERED: Polyethylene Glycol 3350 Powder 17 GM Packet PO PRN (15:54)
[2017-10-16] MEDS ORDERED: HYDROmorphone 1 MG/ML Syringe IVPUSH PRN (15:54)
[2017-10-16] MEDS ORDERED: Bisacodyl 5 MG Tab PO PRN (15:54)
[2017-10-16] MEDS ORDERED: Acetaminophen 325 MG Tab PO PRN (15:54)
[2017-10-16] MEDS ORDERED: Sodium Chloride 0.9% 2.5 ML Syringe FLUSH PRN (15:54)
[2017-10-16] MEDS ORDERED: Ondansetron 4 MG Tab.DIS PO PRN (15:54)
[2017-10-16] MEDS ORDERED: oxyCODONE 5 MG Tab PO PRN (15:59)
--- NOTE | 2017-10-16 16:03 | PCM.HP ---
H&P History of Present Illness - General Date of Service: 10/16/17 Admit Problem/Dx: Admission Diagnosis/Problem Admission Diagnosis/Problem Back pain Source of Information: Patient, Old Records History Limitations: Reports: No Limitations - History of Present Illness Initial Comments - Free Text/Narative: This 52 year old male with pmh of seizure disorder and chronic back pain presented to the hospital today for a second time in 24 hours. He arrived to the ED yesterday with complaints of acute low back pain. 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 He was given [place] and Flexeril yesterday and was discharged home. He returned to with worsening pain and such pain that he was unable to get up and ambulate due to disabling pain. He denies urinary incontinence or bowel incontinence. No numbness tingling or loss of sensation to his R leg. He has no focal weakness. The pain itself limits the movements of his R leg. He denies fevers, chills, cough, chest pain or SOB. He denies abdominal pain, urinary symptoms or focal neurological deficits. He denies neck pain or headaches. He denies any injuries or trauma to his back. No falls, slips or trips. He denies tobacco use, alcohol use or recreational drug use. In the ED, UA negative. labwork from 10/[address] obtained today revealed "slight anterior wedging of T11 through L1 is likely chronic. The lumbar vertebral body height is otherwise maintained. Degenerative disc and facet joint disease within the lumbar spine. At L5-S1, narrowing of the right- sided subarticular recess secondary to disc osteophyte complex with contact of the descending right-sided S1 nerve root. Right neural foramina is moderately stenotic. At L4-L5, mild central canal stenosis. Moderate to severe right foraminal stenosis. Correlate for right-sided L4 radicular symptoms." he was given Dilaudid and Solumderol 125 mg IV in the ED. Attempt was made at discharge but due to pain patient was unable to ambulate or get up from stretcher without significant pain. Will admit observation for acute low back pain with intractable pain. PCP, Dr Durant. Dr Durant was notified by ED provider and visited with patient in the ED. Back Pain Score (Numeric/FACES): 8 - Related Data Allergies/Adverse Reactions: Allergies Allergy/AdvReac Type Severity Reaction Status Date / Time No Known Allergies Allergy Verified 10/16/17 09:56 Home Medications: Home Meds Phenytoin Sodium Extended [Dilantin] 300 mg PO BID 07/13/15 [History] Past Medical History - Past Health History Medical/Surgical History: Denies Medical/Surgical History HEENT History: Reports: Other (See Below) Other HEENT History: wears glasses Cardiovascular History: Reports: None. Denies: CAD, High Cholesterol, Hypertension, [place] Respiratory History: Reports: None. Denies: COPD, PE, SOB Gastrointestinal History: Reports: Cholelithiasis, GERD Genitourinary History: Reports: None. Denies: Chronic Renal Insuffiency Musculoskeletal History: Reports: Back Pain, Chronic Neurological History: Reports: Seizure Other Neuro History: Pt had 2 grand mal seizures 20 years ago and has not had one since. Psychiatric History: Reports: None Endocrine/Metabolic History: Reports: Obesity/BMI 30+. Denies: Diabetes, Type II Hematologic History: Reports: None Immunologic History: Reports: None Oncologic (Cancer) History: Reports: None Dermatologic History: Reports: None - Infectious Disease History Infectious Disease History: Reports: Chicken Pox - Past Surgical History Head Surgeries/Procedures: Reports: None Cardiovascular Surgical History: Reports: None Respiratory Surgical History: Reports: None GI Surgical History: Reports: Cholecystectomy Male Surgical History: Reports: None Musculoskeletal Surgical History: Reports: Carpal Tunnel, Shoulder Surgery, Other (See Below) Other Musculoskeletal Surgeries/Procedures:: Low back surgery, rotator cuff repair Dermatological Surgical History: Reports: None Social & Family History - Family History Family Medical History: Noncontributory HEENT: Reports: Hearing Impairment, Impaired Vision Cardiac: Reports: Afib, Heart Failure, High Cholesterol, Hypertension : Reports: Renal Disease/Insufficiency OBGYN: Reports: Musculoskeletal: Reports: Arthritis, Osteoarthritis, Osteoporosis Oncologic: Reports: Leukemia, Other (See Below) Other Oncologic Family History: throat cancer - Tobacco Use Smoking Status *Q: Never Smoker Second Hand Smoke Exposure: No - Caffeine Use Caffeine Use: Reports: Energy Drinks - Recreational Drug Use Recreational Drug Use: No - Living Situation & Occupation Living situation: Reports: Single 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 Denies: Fever, Chills, Malaise, Weakness, Fatigue HEENT: Reports: No Symptoms. Denies: Headaches, Sinus Congestion, Visual Changes Pulmonary: Reports: No Symptoms. Denies: Shortness of Breath, Cough, Sputum Cardiovascular: Reports: No Symptoms. Denies: Chest Pain, Edema Gastrointestinal: Reports: No Symptoms. Denies: Abdominal Pain, Black Stool, Bloody Stool, Constipation, Diarrhea, Decreased Appetite, Melena, Nausea, Stool Incontinence, Vomiting Genitourinary: Reports: No Symptoms. Denies: Dysuria, Frequency, Burning, Incontinence Musculoskeletal: Reports: No Symptoms. Denies: Neck Pain Skin: Reports: No Symptoms Psychiatric: Reports: No Symptoms Neurological: Reports: Difficulty Walking (due to severe pain). Denies: Dizziness, Numbness, Paresthesia, Seizure, Tingling, Weakness Hematologic/Lymphatic: Reports: No Symptoms Immunologic: Reports: No Symptoms Exam - Exam Exam: See Below - Vital Signs Vital Signs: Last Vital Signs Temp 97.4 F 10/16/17 10:00 Pulse 75 10/16/17 15:00 Resp 18 10/16/17 15:00 BP 150/89 H 10/16/17 15:00 Pulse Ox 97 10/16/17 15:00 Weight: 81.647 kg - Exam General: Alert, Oriented, Cooperative HEENT: Conjunctiva Clear, Mucosa Moist & [place], Nares Patent, Posterior Pharynx Clear Neck: Supple, Trachea Midline, 2 Lungs: Clear to Auscultation, Normal Respiratory Effort Cardiovascular: Regular Rate, Regular Rhythm GI/Abdominal Exam: Normal Bowel Sounds, Soft, Non-Tender, No Organomegaly, No Distention, No Abnormal Bruit, No Mass, Pelvis Stable. No: Rigid, Rebound Back Exam: Normal Inspection, Decreased Range of Motion, Muscle Spasm, Other ( pain noted to R SI joint region, radiating to anterior/lateral quadraceps and down the anterior of his R leg. ). No: Full Range of Motion, Paraspinal Tenderness, Vertebral Tenderness Extremities: Normal Inspection, Normal Range of Motion, Non-Tender, No Pedal Edema, Normal Capillary Refill Neurological: Cranial Nerves Intact, Reflexes Equal Bilateral, Other (unable to do do straight leg raise to R). No: Normal Gait (unable to ambulate or sit up due to extreme pain to R lower back) Neuro Extensive - Mental Status: Alert, Oriented x3, Normal Mood/Affect, Normal Cognition Neuro Extensive - Motor, Sensory, Reflexes: CN II-XII Intact. No: Normal Gait ( due to extreme pain), Motor/Sensory Deficits Psychiatric: Alert, Normal Affect, Normal Mood - Patient Data Lab Results Last 24 hrs: Laboratory Results - last 24 hr 10/16/17 Range/Units 10:40 Urine Color YELLOW Urine Appearance CLEAR Urine pH 7.0 (5.0-8.0) Ur Specific [place] 1.020 (1.001-1.035) Urine Protein NEGATIVE (NEGATIVE) mg/dL Urine Glucose (UA) NEGATIVE (NEGATIVE) mg/dL Urine Ketones NEGATIVE (NEGATIVE) mg/dL Urine Occult Blood NEGATIVE (NEGATIVE) Urine Nitrite NEGATIVE (NEGATIVE) Urine Bilirubin NEGATIVE (NEGATIVE) Urine Urobilinogen 1.0 (<2.0) EU/dL Ur Leukocyte Esterase NEGATIVE (NEGATIVE) Urine RBC 0-1 (0-2/HPF) Urine WBC 0-2 (0-5/HPF) Ur Epithelial Cells RARE (NONE-FEW) Amorphous Sediment RARE (NEGATIVE) Urine Bacteria RARE (NEGATIVE) *Q Meaningful Use (ADM) - VTE Risk Assess *Q Each Risk Factor Represents 1 Point: Age 41 - 59 years, Obesity ( BMI > 25 kg/m2 ) Total Score 1 Point Risk Factors: 2 Each Risk Factor Represents 2 Points: None Total Score 2 Point Risk Factors: 0 Each Risk Factor Represents 3 Points: None Total Score 3 Point Risk Factors: 0 Each Risk Factor Represents 5 Points: None Total Score 5 Point Risk Factors: 0 Venous Thromboembolism Risk Factor Score *Q: 2 - Problem List (1) Low back pain SNOMED Code(s): 814385294 ICD Code: M54.5 - LOW BACK PAIN Status: Acute Current Visit: No Qualifiers: Chronicity: acute Back pain laterality: midline Sciatica presence: without sciatica Qualified Code(s): M54.5 - Low back pain (2) Degenerative disc disease SNOMED Code(s): 40698163 ICD Code: [id number] - Status: Acute Current Visit: Yes Qualifiers: Spinal region: lumbosacral Qualified Code(s): M51.37 - Other intervertebral disc degeneration, lumbosacral region (3) Seizure disorder SNOMED Code(s): 843293901 ICD Code: G40.909 - EPILEPSY, UNSP, NOT INTRACTABLE, WITHOUT STATUS EPILEPTICUS Status: Chronic Current Visit: Yes Problem List Initiated/Reviewed/Updated: Yes Orders Last 24hrs: Active Orders 24 hr Category Date Time Status Patient Status [ADT] Stat ADT 10/16/17 15:01 Active Intake and Output [RC] QSHIFT Care 10/16/17 15:54 Ordered May Shower [RC] ASDIRECTED Care 10/16/17 15:54 Ordered Oxygen Therapy [RC] PRN Care 10/16/17 15:54 Ordered RT Incentive Spirometry [RC] ASDIRECTED Care 10/16/17 15:58 Ordered Up ad Maribel [RC] ASDIRECTED Care 10/16/17 15:54 Ordered VTE/DVT Education [RC] PER UNIT ROUTINE Care 10/16/17 15:54 Ordered Vital Signs [RC] Q4H Care 10/16/17 15:54 Ordered Consult to Physical Therapy [PT Evaluation and Cons 10/16/17 15:58 Ordered Treatment] [CONS] Routine Regular Diet [DIET] Diet 10/16/17 Dinner Ordered Lumbar Spine wo Cont [CT] Stat Exams 10/16/17 10:05 Taken BASIC METABOLIC PANEL,BMP [CHEM] AM Lab 10/17/17 05:11 Ordered CBC WITH AUTO DIFF [HEME] AM Lab 10/17/17 05:11 Ordered UA W/MICROSCOPIC [URIN] Stat Lab 10/16/17 10:40 Ordered Acetaminophen [Tylenol] Med 10/16/17 15:54 Ordered 650 mg PO Q4H PRN Bisacodyl [Dulcolax] Med 10/16/17 15:54 Ordered 5 mg PO DAILY PRN Cyclobenzaprine [Flexeril] Med 10/16/17 15:56 Ordered 10 mg PO TID Docusate Sodium [Colace] Med 10/16/17 21:00 Ordered 100 mg PO BID Enoxaparin [Lovenox] Med 10/16/17 16:00 Ordered 40 mg SUBCUT Q24H HYDROmorphone [Dilaudid] Med 10/16/17 15:54 Ordered 0.5 mg IVPUSH Q2H PRN Ketorolac [Toradol] Med 10/16/17 16:00 Ordered 30 mg IV Q6H Ondansetron [Zofran ODT] Med 10/16/17 15:54 Ordered 4 mg PO Q4H PRN Pantoprazole [ProTONIX] Med 10/17/17 07:30 Ordered 40 mg PO ACBREAKFAST Phenytoin Med 10/16/17 21:00 Ordered 300 mg PO BID Polyethylene Glycol 3350 [MiraLAX] Med 10/16/17 15:54 Ordered 17 gm PO DAILY PRN Sodium Chloride 0.9% [Saline Flush] Med 10/16/17 15:54 Ordered 2.5 ml FLUSH ASDIRECTED PRN oxyCODONE Med 10/16/17 15:59 Ordered 5 mg PO Q4H PRN Heat Therapy [OM.PC] Routine Oth 10/16/17 15:59 Ordered Ice Therapy [OM.PC] Routine Oth 10/16/17 15:59 Ordered Saline Lock Insert [OM.PC] Routine Oth 10/16/17 15:54 Ordered Resuscitation Status Routine Resus Stat 10/16/17 15:54 Ordered Medication Orders Acetaminophen (Tylenol) 650 mg PO Q4H PRN PRN Reason: Pain (mild 1-3) Bisacodyl (Dulcolax) 5 mg PO DAILY PRN PRN Reason: Constipation Cyclobenzaprine HCl (Flexeril) 10 mg PO TID OSMAN Docusate Sodium (Colace) 100 mg PO BID OSMAN Enoxaparin Sodium (Lovenox) 40 mg SUBCUT Q24H OSMAN Hydromorphone HCl (Dilaudid) 0.5 mg IVPUSH Q2H PRN PRN Reason: Pain (severe 7-10) Ketorolac Tromethamine (Toradol) 30 mg IV Q6H OSMAN Stop: 10/17/17 10:01 Ondansetron HCl (Zofran Odt) 4 mg PO Q4H PRN PRN Reason: nausea, able to take PO Oxycodone HCl (Oxycodone) 5 mg PO Q4H PRN PRN Reason: Pain Pantoprazole Sodium (Protonix) 40 mg PO ACBREAKFAST OSMAN Phenytoin Sodium (Phenytoin) 300 mg PO BID OSMAN Polyethylene Glycol (Miralax) 17 gm PO DAILY PRN PRN Reason: Constipation Sodium Chloride (Saline Flush) 2.5 ml FLUSH ASDIRECTED PRN PRN Reason: Keep Vein Open Assessment/Plan Comment:: This 52 year old male admitted with acute low back pain 1. Acute low back pain: L4 radiculopathy. Will treat conservatively with Toradol , Flexeril, Tylenol, with Dilaudid IV and Oxycodone PRN. Heat and/or ice PRN. PT to consult in am. Encouraged IS use. If no control of pain tomorrow, may consider MRI of lumbar spine. Will also initiate bowel regimen due to narcotic use and decrease ambulation. 2. Seizure disorder: Continue Phenytoin. No seizures in many years VTE prophylaxis: Lovenox. Dispo: 1-2 days pending improvement
[2017-10-16] MEDS: Cyclobenzaprine 10 MG Tab PO SCH ×2 (16:27→21:35)
[2017-10-16] MEDS: Ketorolac 30 MG/ML SDV IV SCH ×2 (16:28→21:35)
[2017-10-16] MEDS: Enoxaparin 40 MG/0.4 ML Syringe SUBCUT SCH (16:31)
--- NOTE | 2017-10-16 16:31 | CT ---
EXAM DATE: 10/16/17 PATIENT'S AGE: 52 Patient: EVERARDO COLUNGA Facility: [place], [place] Site . Site : [id number] Study: CT Spine Lumbar [id number] 1:25:48 PM Ordering Physician: Denise Fontaine Final Report: HISTORY: Back pain. TECHNIQUE: Noncontrast CT lumbar spine. COMPARISON: No prior. FINDINGS: The slight anterior wedging of T11 through L1 is likely chronic. The lumbar vertebral body height is otherwise maintained. There is degenerative disc and facet joint disease within the lumbar spine. The lumbar alignment is maintained. - At L5-S1, loss of disc height. Posterior disc-osteophyte complex narrows the right subarticular recess with abutment of the right-sided S1 nerve root. The right-sided neural foramina is moderately stenotic. Left neural foramina is patent. At L4-L5, mild loss of disc height with annular disc bulge and mild spondylitic ridging at the disc space margin. Facet joint degenerative changes. Mild central canal narrowing. Moderate to severe right foraminal stenosis. Correlate for right-sided L4 radicular symptoms. Left neural foramina patent. At L3-L4, mild annular disc bulge with mild spondylitic ridging at the disc space margin. Mild ventral thecal sac effacement. Mild inferior foraminal effacement without impingement on exiting nerve roots. At L2-L3, mild annular disc bulge with mild spondylitic ridging at the disc space margin. No canal or foraminal stenosis. At L1-L2, no canal or foraminal stenosis. At T12-L1, no canal or foraminal stenosis. - Degenerative changes of the sacroiliac joints and hips. Prior cholecystectomy. IMPRESSION: 1. The slight anterior wedging of T11 through L1 is likely chronic. The lumbar vertebral body height is otherwise maintained. 2. Degenerative disc and facet joint disease within the lumbar spine. 3. At L5-S1, narrowing of the right-sided subarticular recess secondary to disc osteophyte complex with contact of the descending right-sided S1 nerve root. Right neural foramina is moderately stenotic. 4. At L4-L5, mild central canal stenosis. Moderate to severe right foraminal stenosis. Correlate for right-sided L4 radicular symptoms. Dictated by Giovani Nava MD @ 10/16/2017 2:01:29 PM Please note that all CT scans at this facility use dose modulation, iterative reconstruction, and/or weight-based dosing when appropriate to reduce radiation dose to as low as reasonably achievable. Dictated by: Giovani Nava MD @ 10/16/2017 14:01:36 (Electronic Signature) Report Signed by Proxy. MTDD
[2017-10-16] MEDS: Phenytoin 100 MG Cap.ER PO SCH (21:35)
[2017-10-16] MEDS: Docusate Sodium 100 MG Cap PO SCH (21:35)
[2017-10-17] MEDS ORDERED: Dexamethasone 10 MG/ML SDV ONE (00:29)
[2017-10-17] MEDS: Ketorolac 30 MG/ML SDV IV SCH ×2 (04:15→10:36)
[2017-10-17 05:39] LABS: CHLORIDE,CL 105 mmol/L (98-107); SODIUM,NA 138 mmol/L (136-148)
[2017-10-17] MEDS: Gabapentin 100 MG Cap PO SCH ×2 (06:49→14:05)
[2017-10-17] MEDS: Cyclobenzaprine 10 MG Tab PO SCH ×3 (06:49→22:06)
[2017-10-17] MEDS: Pantoprazole 40 MG Tab.CR PO SCH (06:49)
[2017-10-17] MEDS: Docusate Sodium 100 MG Cap PO SCH ×2 (08:03→22:05)
[2017-10-17] MEDS: Phenytoin 100 MG Cap.ER PO SCH ×2 (08:03→22:06)
--- NOTE | 2017-10-17 11:22 | PCM.PN ---
- General Info Date of Service: 10/17/17 Admission Dx/Problem (Free Text): Admission Diagnosis/Problem Admission Diagnosis/Problem Back pain Subjective Update: Pain has improved today. Able to sit up more and no longer needing to lie completely flat. No chest pain SOB or palpitations. no abdominal pain. No weakness, numbness or tingling to legs. No incontinence. Was up ambulating with PT this morning. Did well. sat on toilet to have BM and pain started coming back with bent over positioning. Functional Status: Reports: Pain Controlled, Tolerating Diet, Ambulating, Urinating - Review of Systems General: Reports: No Symptoms. Denies: Fever, Weakness, Fatigue HEENT: Reports: No Symptoms. Denies: Headaches, Sore Throat, Visual Changes Pulmonary: Reports: No Symptoms. Denies: Shortness of Breath Cardiovascular: Reports: No Symptoms. Denies: Chest Pain Gastrointestinal: Reports: No Symptoms. Denies: Abdominal Pain, Nausea, Vomiting Genitourinary: Reports: No Symptoms. Denies: Dysuria, Frequency, Burning Musculoskeletal: Reports: Back Pain (improved, worsened with sitting after PT. ) Skin: Reports: No Symptoms Neurological: Reports: No Symptoms Psychiatric: Reports: No Symptoms - Patient Data Vitals - Most Recent: Last Vital Signs Temp 97.5 F 10/17/17 07:00 Pulse 78 10/17/17 07:00 Resp 18 10/17/17 07:00 BP 124/75 10/17/17 07:00 Pulse Ox 96 10/17/17 07:00 Weight - Most Recent: 81.647 kg I&O - Last 24 Hours: Intake & Output 10/16/17 10/17/17 10/17/17 22:59 06:59 14:59 Intake Total 700 Output Total 600 Balance 100 Lab Results Last 24 Hours: Laboratory Results - last 24 hr 10/17/17 10/17/17 Range/Units 05:05 05:05 WBC 9.05 (4.0-11.0) K/uL RBC 5.13 (4.50-5.90) M/uL Hgb 16.6 (13.0-17.0) g/dL Hct 45.4 (38.0-50.0) % MCV 88.5 (80.0-98.0) fL MCH 32.4 H (27.0-32.0) pg MCHC 36.6 (31.0-37.0) g/dL RDW Std Deviation 42.1 (28.0-62.0) fl RDW Coeff of Zehra 13 (11.0-15.0) % Plt Count 174 (150-400) K/uL MPV 10.80 (7.40-12.00) fL Neut % (Auto) 86.4 H (48.0-80.0) % Lymph % (Auto) 11.0 L (16.0-40.0) % [place] % (Auto) 2.5 (0.0-15.0) % Eos % (Auto) 0.0 (0.0-7.0) % Baso % (Auto) 0.1 (0.0-1.5) % Neut # (Auto) 7.8 H (1.4-5.7) K/uL Lymph # (Auto) 1.0 (0.6-2.4) K/uL [place] # (Auto) 0.2 (0.0-0.8) K/uL Eos # (Auto) 0.0 (0.0-0.7) K/uL Baso # (Auto) 0.0 (0.0-0.1) K/uL Nucleated RBC % 0.0 /100WBC Nucleated RBCs # 0 K/uL Sodium 138 (136-148) mmol/L Potassium 4.2 (3.5-5.1) mmol/L Chloride 105 (98-107) mmol/L Carbon Dioxide 24.0 (21.0-32.0) mmol/L BUN 21 H (7.0-18.0) mg/dL Creatinine 1.0 (0.8-1.3) mg/dL Est Cr Clr Drug Dosing 87.19 mL/min Estimated GFR (MDRD) > 60.0 ml/min Glucose 159 H (74-106) mg/dL Calcium 9.3 (8.5-10.1) mg/dL Med Orders - Current: Current Medications Acetaminophen (Tylenol) 650 mg PO Q4H PRN PRN Reason: Pain (mild 1-3) Bisacodyl (Dulcolax) 5 mg PO DAILY PRN PRN Reason: Constipation Cyclobenzaprine HCl (Flexeril) 10 mg PO TID ON LICENSE OF [facility] Last Admin: 10/17/17 06:49 Dose: 10 mg Docusate Sodium (Colace) 100 mg PO BID ON LICENSE OF [facility] Last Admin: 10/17/17 08:03 Dose: 100 mg Enoxaparin Sodium (Lovenox) 40 mg SUBCUT Q24H ON LICENSE OF [facility] Last Admin: 10/16/17 16:31 Dose: 40 mg Gabapentin (Neurontin) 200 mg PO TID ON LICENSE OF [facility] Last Admin: 10/17/17 06:49 Dose: 200 mg Hydromorphone HCl (Dilaudid) 0.5 mg IVPUSH Q2H PRN PRN Reason: Pain (severe 7-10) Ondansetron HCl (Zofran Odt) 4 mg PO Q4H PRN PRN Reason: nausea, able to take PO Oxycodone HCl (Oxycodone) 5 mg PO Q4H PRN PRN Reason: Pain Pantoprazole Sodium (Protonix) 40 mg PO ACBREAKFAST ON LICENSE OF [facility] Last Admin: 10/17/17 06:49 Dose: 40 mg Phenytoin Sodium (Phenytoin) 300 mg PO BID ON LICENSE OF [facility] Last Admin: 10/17/17 08:03 Dose: 300 mg Polyethylene Glycol (Miralax) 17 gm PO DAILY PRN PRN Reason: Constipation Sodium Chloride (Saline Flush) 2.5 ml FLUSH ASDIRECTED PRN PRN Reason: Keep Vein Open Discontinued Medications Dexamethasone (Dexamethasone) Confirm Administered Dose 10 mg .ROUTE .STK-MED ONE Stop: 10/17/17 00:30 Last Admin: 10/17/17 00:51 Dose: Not Given Dexamethasone Sodium Phosphate (Dexamethasone Sodium Phosphate) 10 mg IVPUSH ONETIME ONE Stop: 10/16/17 22:19 Last Admin: 10/17/17 00:33 Dose: 10 mg Hydromorphone HCl (Dilaudid) 0.5 mg IM ONETIME ONE Stop: 10/16/17 12:16 Last Admin: 10/16/17 12:36 Dose: 0.5 mg Hydromorphone HCl (Dilaudid) 1 mg IVPUSH ONETIME ONE Stop: 10/16/17 14:41 Last Admin: 10/16/17 14:58 Dose: 1 mg Ketorolac Tromethamine (Toradol) 30 mg IV Q6H ON LICENSE OF [facility] Stop: 10/17/17 10:01 Last Admin: 10/17/17 10:36 Dose: 30 mg Methylprednisolone Sodium Succinate (Solu-Medrol) 125 mg IVPUSH ONETIME ONE Stop: 10/16/17 14:41 Last Admin: 10/16/17 14:58 Dose: 125 mg Ondansetron HCl (Zofran) 4 mg IVPUSH ONETIME ONE Stop: 10/16/17 14:41 Last Admin: 10/16/17 14:58 Dose: 4 mg - Exam General: Alert, Oriented, Cooperative, No Acute Distress Neck: Supple Lungs: Clear to Auscultation, Normal Respiratory Effort Cardiovascular: Regular Rate, Regular Rhythm GI/Abdominal Exam: Normal Bowel Sounds, Soft, Non-Tender, No Organomegaly, No Distention, No Abnormal Bruit, No Mass, Pelvis Stable Back Exam: Normal Inspection, Decreased Range of Motion (limited in sitting position. ), Other (Less tenderness to R lower back today on palpation. No numbness/tingling to legs. More able to do straight leg raise to R side today as compared to yesterday. ). No: Full Range of Motion, Muscle Spasm, Paraspinal Tenderness, Vertebral Tenderness Extremities: Normal Inspection, Normal Range of Motion, Non-Tender, No Pedal Edema, Normal Capillary Refill Neurological: No New Focal Deficit Psy/Mental Status: Alert, Normal Affect, Normal Mood - Problem List & Annotations (1) Low back pain SNOMED Code(s): 435220563 Code(s): M54.5 - LOW BACK PAIN Status: Acute Current Visit: No Qualifiers: Chronicity: acute Back pain laterality: midline Sciatica presence: without sciatica Qualified Code(s): M54.5 - Low back pain (2) Degenerative disc disease SNOMED Code(s): 17710118 Code(s): LYM4826 - Status: Acute Current Visit: Yes Qualifiers: Spinal region: lumbosacral Qualified Code(s): M51.37 - Other intervertebral disc degeneration, lumbosacral region (3) Seizure disorder SNOMED Code(s): 917535733 Code(s): G40.909 - EPILEPSY, UNSP, NOT INTRACTABLE, WITHOUT STATUS EPILEPTICUS Status: Chronic Current Visit: Yes - Problem List Review Problem List Initiated/Reviewed/Updated: Yes - My Orders Last 24 Hours: My Active Orders 10/16/17 15:54 Intake and Output [RC] Q12H May Shower [RC] ASDIRECTED Oxygen Therapy [RC] PRN Up ad Maribel [RC] ASDIRECTED VTE/DVT Education [RC] PER UNIT ROUTINE Vital Signs [RC] Q4H Acetaminophen [Tylenol] 650 mg PO Q4H PRN Bisacodyl [Dulcolax] 5 mg PO DAILY PRN HYDROmorphone [Dilaudid] 0.5 mg IVPUSH Q2H PRN Ondansetron [Zofran ODT] 4 mg PO Q4H PRN Polyethylene Glycol 3350 [MiraLAX] 17 gm PO DAILY PRN Sodium Chloride 0.9% [Saline Flush] 2.5 ml FLUSH ASDIRECTED PRN Saline Lock Insert [OM.PC] Routine Resuscitation Status Routine 10/16/17 15:56 Cyclobenzaprine [Flexeril] 10 mg PO TID 10/16/17 15:58 RT Incentive Spirometry [RC] ASDIRECTED Consult to Physical Therapy [PT Evaluation and Treatment] [CONS] Routine 10/16/17 15:59 oxyCODONE 5 mg PO Q4H PRN Heat Therapy [OM.PC] Routine Ice Therapy [OM.PC] Routine 10/16/17 16:00 Enoxaparin [Lovenox] 40 mg SUBCUT Q24H 10/16/17 21:00 Docusate Sodium [Colace] 100 mg PO BID Phenytoin 300 mg PO BID 10/16/17 Dinner Regular Diet [DIET] 10/17/17 07:30 Pantoprazole [ProTONIX] 40 mg PO ACBREAKFAST - Plan Plan:: This 52 year old male admitted with acute low back pain 1. Acute low back pain: L4 radiculopathy. Will transition to PO NSAID, Naproxen today. Continued scheduled Flexeril and Gabapentin 200 mg TID. Tylenol, Dilaudid IV and Oxycodone PRN available, but not using any since admission. Heat and/or ice PRN. Continue PT. Encouraged IS use. patient would like to hold off on MRI of lumbar spine and see back surgeon in [facility] since he is feeling better. Continue bowel regimen to reduce constipation. 2. Seizure disorder: Continue Phenytoin. No seizures in many years VTE prophylaxis: Lovenox. Dispo: 1-2 days pending improvement
[2017-10-17] MEDS: Enoxaparin 40 MG/0.4 ML Syringe SUBCUT SCH (15:43)
[2017-10-17] MEDS: Gabapentin 300 MG Cap PO SCH (22:06)
[2017-10-18] MEDS: Gabapentin 300 MG Cap PO SCH ×3 (05:32→21:02)
[2017-10-18] MEDS: Cyclobenzaprine 10 MG Tab PO SCH ×3 (05:32→21:02)
[2017-10-18] MEDS: Pantoprazole 40 MG Tab.CR PO SCH (06:49)
[2017-10-18] MEDS: Phenytoin 100 MG Cap.ER PO SCH ×2 (09:22→21:02)
[2017-10-18] MEDS: Docusate Sodium 100 MG Cap PO SCH ×2 (09:22→21:02)
[2017-10-18] MEDS ORDERED: Ketorolac 30 MG/ML SDV IVPUSH ONE (13:01)
--- NOTE | 2017-10-18 13:10 | PCM.PN ---
- General Info Date of Service: 10/18/17 Admission Dx/Problem (Free Text): Admission Diagnosis/Problem Admission Diagnosis/Problem Back pain Subjective Update: Was doing really well this morning and was eager to be discharged home. He was ambulating well and pain well controlled. Prior to lunch he ambulated in the hallway x4 around the loop and he started having severe pain again with radiation to the lateral and anterior quadriceps on R side. No chest pain or SOB. No palpitations. Functional Status: Reports: Pain Controlled, Tolerating Diet, Ambulating, Urinating - Review of Systems General: Reports: No Symptoms. Denies: Fever, Weakness, Fatigue, Malaise HEENT: Reports: No Symptoms. Denies: Contact Lenses, Headaches, Rhinitis, Visual Changes Pulmonary: Reports: No Symptoms. Denies: Shortness of Breath, Cough, Sputum Cardiovascular: Reports: No Symptoms. Denies: Chest Pain, Dyspnea on Exertion, Edema Gastrointestinal: Reports: No Symptoms. Denies: Abdominal Pain, Nausea, Vomiting Genitourinary: Reports: No Symptoms. Denies: Dysuria, Frequency, Burning Musculoskeletal: Reports: Back Pain (low back pain with radiation to R anterior leg and down to his foot) Skin: Reports: No Symptoms Neurological: Reports: No Symptoms - Patient Data Vitals - Most Recent: Last Vital Signs Temp 98.3 F 10/18/17 11:58 Pulse 68 10/18/17 11:58 Resp 16 10/18/17 11:58 BP 116/67 10/18/17 11:58 Pulse Ox 95 10/18/17 11:58 Weight - Most Recent: 81.647 kg I&O - Last 24 Hours: Intake & Output 10/17/17 10/18/17 10/18/17 22:59 06:59 14:59 Intake Total 700 1000 Output Total 0 0 Balance 700 1000 Med Orders - Current: Current Medications Acetaminophen (Tylenol) 650 mg PO Q4H PRN PRN Reason: Pain (mild 1-3) Bisacodyl (Dulcolax) 5 mg PO DAILY PRN PRN Reason: Constipation Cyclobenzaprine HCl (Flexeril) 10 mg PO TID [facility] Last Admin: 10/18/17 05:32 Dose: 10 mg Docusate Sodium (Colace) 100 mg PO BID [facility] Last Admin: 10/18/17 09:22 Dose: 100 mg Enoxaparin Sodium (Lovenox) 40 mg SUBCUT Q24H [facility] Last Admin: 10/17/17 15:43 Dose: 40 mg Gabapentin (Neurontin) 300 mg PO TID [facility] Last Admin: 10/18/17 05:32 Dose: 300 mg Hydromorphone HCl (Dilaudid) 0.5 mg IVPUSH Q2H PRN PRN Reason: Pain (severe 7-10) Ondansetron HCl (Zofran Odt) 4 mg PO Q4H PRN PRN Reason: nausea, able to take PO Oxycodone HCl (Oxycodone) 5 mg PO Q4H PRN PRN Reason: Pain Last Admin: 10/18/17 11:50 Dose: 5 mg Pantoprazole Sodium (Protonix) 40 mg PO ACBREAKFAST [facility] Last Admin: 10/18/17 06:49 Dose: 40 mg Phenytoin Sodium (Phenytoin) 300 mg PO BID [facility] Last Admin: 10/18/17 09:22 Dose: 300 mg Polyethylene Glycol (Miralax) 17 gm PO DAILY PRN PRN Reason: Constipation Sodium Chloride (Saline Flush) 2.5 ml FLUSH ASDIRECTED PRN PRN Reason: Keep Vein Open Discontinued Medications Dexamethasone (Dexamethasone) Confirm Administered Dose 10 mg .ROUTE .STK-MED ONE Stop: 10/17/17 00:30 Last Admin: 10/17/17 00:51 Dose: Not Given Dexamethasone Sodium Phosphate (Dexamethasone Sodium Phosphate) 10 mg IVPUSH ONETIME ONE Stop: 10/16/17 22:19 Last Admin: 10/17/17 00:33 Dose: 10 mg Dexamethasone Sodium Phosphate (Dexamethasone Sodium Phosphate) 10 mg IVPUSH ONETIME ONE Stop: 10/17/17 12:01 Last Admin: 10/17/17 14:06 Dose: 10 mg Gabapentin (Neurontin) 200 mg PO TID [facility] Last Admin: 10/17/17 14:05 Dose: 200 mg Hydromorphone HCl (Dilaudid) 0.5 mg IM ONETIME ONE Stop: 10/16/17 12:16 Last Admin: 10/16/17 12:36 Dose: 0.5 mg Hydromorphone HCl (Dilaudid) 1 mg IVPUSH ONETIME ONE Stop: 10/16/17 14:41 Last Admin: 10/16/17 14:58 Dose: 1 mg Ketorolac Tromethamine (Toradol) 30 mg IV Q6H [facility] Stop: 10/17/17 10:01 Last Admin: 10/17/17 10:36 Dose: 30 mg Ketorolac Tromethamine (Toradol) 30 mg IVPUSH ONETIME ONE Stop: 10/18/17 13:02 Methylprednisolone Sodium Succinate (Solu-Medrol) 125 mg IVPUSH ONETIME ONE Stop: 10/16/17 14:41 Last Admin: 10/16/17 14:58 Dose: 125 mg Naproxen (Naprosyn) 500 mg PO BIDMEALS [facility] Ondansetron HCl (Zofran) 4 mg IVPUSH ONETIME ONE Stop: 10/16/17 14:41 Last Admin: 10/16/17 14:58 Dose: 4 mg - Exam General: Alert, Oriented, Cooperative, No Acute Distress Lungs: Clear to Auscultation, Normal Respiratory Effort Cardiovascular: Regular Rate, Regular Rhythm GI/Abdominal Exam: Normal Bowel Sounds, Soft, Non-Tender, No Organomegaly, No Distention, No Abnormal Bruit, No Mass, Pelvis Stable Back Exam: Normal Inspection, Other (pain came back today after ambulating. ). No: Paraspinal Tenderness, Vertebral Tenderness Extremities: Normal Inspection, Normal Range of Motion, Non-Tender, No Pedal Edema, Normal Capillary Refill Neurological: No New Focal Deficit Psy/Mental Status: Alert, Normal Affect, Normal Mood - Problem List & Annotations (1) Low back pain SNOMED Code(s): 180128056 Code(s): M54.5 - LOW BACK PAIN Status: Acute Current Visit: No Qualifiers: Chronicity: acute Back pain laterality: midline Sciatica presence: without sciatica Qualified Code(s): M54.5 - Low back pain (2) Degenerative disc disease SNOMED Code(s): 04820641 Code(s): ZXX8041 - Status: Acute Current Visit: Yes Qualifiers: Spinal region: lumbosacral Qualified Code(s): M51.37 - Other intervertebral disc degeneration, lumbosacral region (3) Seizure disorder SNOMED Code(s): 515262208 Code(s): G40.909 - EPILEPSY, UNSP, NOT INTRACTABLE, WITHOUT STATUS EPILEPTICUS Status: Chronic Current Visit: Yes - Problem List Review Problem List Initiated/Reviewed/Updated: Yes - My Orders Last 24 Hours: My Active Orders 10/18/17 10:20 Ready for Discharge [RC] PER UNIT ROUTINE 10/18/17 13:03 Lumbar Spine Comp wo Cont [MR] Routine 10/18/17 17:27 Naproxen [Naprosyn] 500 mg PO BIDMEALS - Plan Plan:: This 52 year old male admitted with acute low back pain 1. Acute low back pain: L4 radiculopathy. Pain returned this afternoon prior to discharge. Hold discharge. Continued scheduled Flexeril and Gabapentin 200 mg TID. Restart Toradol now and monitor. Tylenol, Dilaudid IV and Oxycodone PRN available, but not using any since admission. Heat and/or ice PRN. Continue PT. Encouraged IS use. Continue bowel regimen to reduce constipation. Will obtain Lumbar spine MRI today. 2. Seizure disorder: Continue Phenytoin. No seizures in many years VTE prophylaxis: Lovenox. Dispo: 1-2 days pending improvement
[2017-10-18] MEDS ORDERED: Dexamethasone 10 MG/ML SDV IVPUSH ONE (15:00)
[2017-10-18] MEDS: Enoxaparin 40 MG/0.4 ML Syringe SUBCUT SCH (15:17)
[2017-10-18] MEDS ORDERED: Naproxen 500 MG Tab PO SCH (17:27)
[2017-10-18] MEDS: Ketorolac 15 MG/ML SDV IVPUSH SCH ×2 (18:04→23:35)
[2017-10-19 05:37] LABS: CHLORIDE,CL 109 mmol/L (98-107); SODIUM,NA 141 mmol/L (136-148)
[2017-10-19] MEDS: Ketorolac 15 MG/ML SDV IVPUSH SCH ×2 (05:49→11:25)
[2017-10-19] MEDS: Gabapentin 300 MG Cap PO SCH (05:49)
[2017-10-19] MEDS: Cyclobenzaprine 10 MG Tab PO SCH (05:49)
[2017-10-19] MEDS: Pantoprazole 40 MG Tab.CR PO SCH (06:30)
[2017-10-19] MEDS: Docusate Sodium 100 MG Cap PO SCH (08:09)
[2017-10-19] MEDS: Phenytoin 100 MG Cap.ER PO SCH (08:09)
[2017-10-19 12:31] VITALS: BP 121/65
--- NOTE | 2017-10-19 12:56 | PCM.DCSUM1 ---
Discharge Summary - Hospital Course Brief History: This 52 year old male with pmh of seizure disorder and chronic back pain presented to the hospital today for a second time in 24 hours. He arrived to the ED 10/15 with complaints of acute low back pain. 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 He was given Midland and Flexeril yesterday and was discharged home. He returned to with worsening pain and such pain that he was unable to get up and ambulate due to disabling pain. He denies urinary incontinence or bowel incontinence. No numbness tingling or loss of sensation to his R leg. He has no focal weakness. The pain itself limits the movements of his R leg. He denies fevers, chills, cough, chest pain or SOB. He denies abdominal pain, urinary symptoms or focal neurological deficits. He denies neck pain or headaches. He denies any injuries or trauma to his back. No falls, slips or trips. He denies tobacco use, alcohol use or recreational drug use. In the ED, UA negative. labwork from 10/[address] obtained today revealed "slight anterior wedging of T11 through L1 is likely chronic. The lumbar vertebral body height is otherwise maintained. Degenerative disc and facet joint disease within the lumbar spine. At L5-S1, narrowing of the right- sided subarticular recess secondary to disc osteophyte complex with contact of the descending right-sided S1 nerve root. Right neural foramina is moderately stenotic. At L4-L5, mild central canal stenosis. Moderate to severe right foraminal stenosis. Correlate for right-sided L4 radicular symptoms." he was given Dilaudid and Solumderol 125 mg IV in the ED. Attempt was made at discharge but due to pain patient was unable to ambulate or get up from stretcher without significant pain. Will admit observation for acute low back pain with intractable pain. PCP, Dr Durant. Dr Durant was notified by ED provider and visited with patient in the ED. - Discharge Data Discharge Date: 10/19/17 Discharge Disposition: Home, Self-Care 01 Condition: Stable - Discharge Diagnosis/Problem(s) (1) Low back pain SNOMED Code(s): 808365838 ICD Code: M54.5 - LOW BACK PAIN Status: Acute Current Visit: No Qualifiers: Chronicity: acute Back pain laterality: midline Sciatica presence: without sciatica Qualified Code(s): M54.5 - Low back pain (2) Degenerative disc disease SNOMED Code(s): 43400631 ICD Code: [id number] - Status: Acute Current Visit: Yes Qualifiers: Spinal region: lumbosacral Qualified Code(s): M51.37 - Other intervertebral disc degeneration, lumbosacral region (3) Seizure disorder SNOMED Code(s): 814513922 ICD Code: G40.909 - EPILEPSY, UNSP, NOT INTRACTABLE, WITHOUT STATUS EPILEPTICUS Status: Chronic Current Visit: Yes - Patient Summary/Data Consults: Consultations 10/16/17 15:58 Consult to Physical Therapy [PT Evaluation and Treatment] [CONS] Routine - Patient Instructions Diet: Usual Diet as Tolerated Activity: No Strenuous Activities (Work release) Driving: Do Not Drive (No driving while taking narcotics or muscle relaxants.) Showering/Bathing: May Shower Notify Provider of: Fever, Increased Pain, Swelling and Redness, Drainage, Nausea and/or Vomiting Other/Special Instructions: [facility] in [place] will call you to arrange follow up appointment. - Discharge Plan Prescriptions/Med Rec: Acetaminophen/HYDROcodone [Midland 325-5 MG] 1 tab PO Q6H #1 tablet Cyclobenzaprine [Flexeril] 10 mg PO TID PRN #30 tablet PRN Reason: Muscle spasms Docusate Sodium [Colace] 100 mg PO BID #60 cap Gabapentin [Neurontin] 300 mg PO BID #60 capsule Pantoprazole [ProTONIX] 40 mg PO ACBREAKFAST #30 tab.cr Home Medications: Home Meds Phenytoin Sodium Extended [Dilantin] 300 mg PO BID 07/13/15 [History] Acetaminophen/HYDROcodone [Midland 325-5 MG] 1 tab PO Q6H #1 tablet 10/18/17 [Rx] Cyclobenzaprine [Flexeril] 10 mg PO TID PRN #30 tablet 10/18/17 [Rx] Docusate Sodium [Colace] 100 mg PO BID #60 cap 10/18/17 [Rx] Gabapentin [Neurontin] 300 mg PO BID #60 capsule 05/24/18 [Rx] Naproxen [Naprosyn] 500 mg PO BIDMEALS tablet 10/18/17 [Rx] Pantoprazole [ProTONIX] 40 mg PO ACBREAKFAST #30 tab.cr 10/18/17 [Rx] Polyethylene Glycol 3350 [MiraLAX] 17 gm PO Q72H PRN packet 10/18/17 [Rx] Patient Handouts: Acetaminophen; Hydrocodone tablets or capsules, Cyclobenzaprine tablets, Gabapentin capsules or tablets, Degenerative Disk Disease, Pantoprazole tablets, Docusate capsules Referrals: Saman Durant MD [Primary Care Provider] - 10/30/17 3:45 pm - Discharge Summary/Plan Comment DC Time >30 min.: No Discharge Summary/Plan Comment: Discharge Diagnoses: Acute low back pain, L4 radiculopathy Myles was admitted and treated with NSAIDs, Flexeril and Narcotics along with PT evaluation and treatment. He did well during his stay. Pain decreased. Radiculopathy nearly gone to anterior R quadriceps. He was set up with [facility] in [place] for follow up and MRI 10/25/17. They contacted myles directly and set this up. He has been ambulating with some increase in pain, but the pain is tolerable and he is ready to be discharged today. He did not have any neurological deficits during his stay. He used very minimal narcotics and pain was best controlled with NSAIDs and Flexeril. Gababpentin was also started. He will be sent home with Naproxen BID, Flexeril 10 mg TID pRN, and Gabapentin 300 mg BID. He has some remaining Midland from previous ED visit, which he can use if pain elevates. he verbalized understanding. He is not to drive while taking these medications. He is to limit activity, no excessive bending. But to be up ambulating and completing exercises per PT. Work release given to be off work until further evaluation from [facility] [place]. He will also have follow up with Dr Durant next week. He is to return to ED or clinic if concerns should arise. - General Info Date of Service: 10/19/17 Admission Dx/Problem (Free Text: Admission Diagnosis/Problem Admission Diagnosis/Problem Back pain Subjective Update: Doing better this morning, ambulating well. Pain increases when going to lying to sitting position but once up he feels good. No neurological deficits. No chest pain or SOB. Tolerating diet well. Encouraged to keep up with bowel regimen due to decrease in activity and mediations for pain. Functional Status: Reports: Pain Controlled, Tolerating Diet, Ambulating, Urinating - Review of Systems General: Reports: No Symptoms. Denies: Fever, Weakness, Fatigue, Malaise HEENT: Reports: No Symptoms. Denies: Headaches, Sore Throat, Visual Changes Pulmonary: Reports: No Symptoms. Denies: Shortness of Breath, Cough, Sputum Cardiovascular: Reports: No Symptoms. Denies: Chest Pain, Orthopnea, Edema Gastrointestinal: Reports: No Symptoms. Denies: Abdominal Pain, Nausea, Vomiting Genitourinary: Reports: No Symptoms. Denies: Dysuria, Frequency, Burning Musculoskeletal: Reports: Back Pain (improving, no radiculopathy today. Pain located to R lower back.) Skin: Reports: No Symptoms Neurological: Reports: No Symptoms Psychiatric: Reports: No Symptoms - Patient Data Vitals - Most Recent: Last Vital Signs Temp 98.2 F 10/19/17 12:00 Pulse 64 10/19/17 12:00 Resp 18 10/19/17 12:00 BP 121/65 10/19/17 12:00 Pulse Ox 96 10/19/17 12:00 Weight - Most Recent: 81.647 kg I&O - Last 24 hours: Intake & Output 10/18/17 10/19/17 10/19/17 22:59 06:59 14:59 Intake Total 1260 1110 Output Total 1100 980 Balance 160 130 Lab Results - Last 24 hrs: Laboratory Results - last 24 hr 10/19/17 Range/Units 04:37 Sodium 141 (136-148) mmol/L Potassium 4.2 (3.5-5.1) mmol/L Chloride 109 H (98-107) mmol/L Carbon Dioxide 25.1 (21.0-32.0) mmol/L BUN 23 H (7.0-18.0) mg/dL Creatinine 1.1 (0.8-1.3) mg/dL Est Cr Clr Drug Dosing 79.27 mL/min Estimated GFR (MDRD) > 60.0 ml/min Glucose 117 H (74-106) mg/dL Calcium 8.8 (8.5-10.1) mg/dL Med Orders - Current: Current Medications Acetaminophen (Tylenol) 650 mg PO Q4H PRN PRN Reason: Pain (mild 1-3) Bisacodyl (Dulcolax) 5 mg PO DAILY PRN PRN Reason: Constipation Cyclobenzaprine HCl (Flexeril) 10 mg PO TID [facility] Last Admin: 10/19/17 05:49 Dose: 10 mg Docusate Sodium (Colace) 100 mg PO BID [facility] Last Admin: 10/19/17 08:09 Dose: 100 mg Enoxaparin Sodium (Lovenox) 40 mg SUBCUT Q24H [facility] Last Admin: 10/18/17 15:17 Dose: 40 mg Gabapentin (Neurontin) 300 mg PO TID [facility] Last Admin: 10/19/17 05:49 Dose: 300 mg Hydromorphone HCl (Dilaudid) 0.5 mg IVPUSH Q2H PRN PRN Reason: Pain (severe 7-10) Ondansetron HCl (Zofran Odt) 4 mg PO Q4H PRN PRN Reason: nausea, able to take PO Oxycodone HCl (Oxycodone) 5 mg PO Q4H PRN PRN Reason: Pain Last Admin: 10/18/17 11:50 Dose: 5 mg Pantoprazole Sodium (Protonix) 40 mg PO ACBREAKFAST [facility] Last Admin: 10/19/17 06:30 Dose: 40 mg Phenytoin Sodium (Phenytoin) 300 mg PO BID [facility] Last Admin: 10/19/17 08:09 Dose: 300 mg Polyethylene Glycol (Miralax) 17 gm PO DAILY PRN PRN Reason: Constipation Last Admin: 10/18/17 19:50 Dose: 17 gm Sodium Chloride (Saline Flush) 2.5 ml FLUSH ASDIRECTED PRN PRN Reason: Keep Vein Open Discontinued Medications Dexamethasone (Dexamethasone) Confirm Administered Dose 10 mg .ROUTE .STK-MED ONE Stop: 10/17/17 00:30 Last Admin: 10/17/17 00:51 Dose: Not Given Dexamethasone (Dexamethasone) 10 mg IVPUSH ONETIME ONE Stop: 10/18/17 15:01 Last Admin: 10/18/17 15:13 Dose: 10 mg Dexamethasone Sodium Phosphate (Dexamethasone Sodium Phosphate) 10 mg IVPUSH ONETIME ONE Stop: 10/16/17 22:19 Last Admin: 10/17/17 00:33 Dose: 10 mg Dexamethasone Sodium Phosphate (Dexamethasone Sodium Phosphate) 10 mg IVPUSH ONETIME ONE Stop: 10/17/17 12:01 Last Admin: 10/17/17 14:06 Dose: 10 mg Gabapentin (Neurontin) 200 mg PO TID [facility] Last Admin: 10/17/17 14:05 Dose: 200 mg Hydromorphone HCl (Dilaudid) 0.5 mg IM ONETIME ONE Stop: 10/16/17 12:16 Last Admin: 10/16/17 12:36 Dose: 0.5 mg Hydromorphone HCl (Dilaudid) 1 mg IVPUSH ONETIME ONE Stop: 10/16/17 14:41 Last Admin: 10/16/17 14:58 Dose: 1 mg Ketorolac Tromethamine (Toradol) 30 mg IV Q6H [facility] Stop: 10/17/17 10:01 Last Admin: 10/17/17 10:36 Dose: 30 mg Ketorolac Tromethamine (Toradol) 30 mg IVPUSH ONETIME ONE Stop: 10/18/17 13:02 Last Admin: 10/18/17 13:32 Dose: 30 mg Ketorolac Tromethamine (Toradol) 15 mg IVPUSH Q6H [facility] Stop: 10/19/17 12:01 Last Admin: 10/19/17 11:25 Dose: 15 mg Methylprednisolone Sodium Succinate (Solu-Medrol) 125 mg IVPUSH ONETIME ONE Stop: 10/16/17 14:41 Last Admin: 10/16/17 14:58 Dose: 125 mg Naproxen (Naprosyn) 500 mg PO BIDMEALS [facility] Ondansetron HCl (Zofran) 4 mg IVPUSH ONETIME ONE Stop: 10/16/17 14:41 Last Admin: 10/16/17 14:58 Dose: 4 mg - Exam General: Reports: Alert, Oriented, Cooperative, No Acute Distress Lungs: Reports: Clear to Auscultation, Normal Respiratory Effort Cardiovascular: Reports: Regular Rate, Regular Rhythm GI/Abdominal Exam: Normal Bowel Sounds, Soft, Non-Tender, No Organomegaly, No Distention, No Abnormal Bruit, No Mass, Pelvis Stable Back Exam: Reports: Normal Inspection, Decreased Range of Motion (due to pain. But has improved. able to complete straight let raise today, no futher spasming. ). Denies: CVA Tenderness (L), CVA Tenderness (R), Paraspinal Tenderness, Vertebral Tenderness Neurological: Reports: No New Focal Deficit Psy/Mental Status: Reports: Alert, Normal Affect, Normal Mood
== END 2017-10-19 13:00 | disposition home or self-care (01) ==
LOC: MW.ED 09:52 → MW.ICU 15:01 → MW.MS 15:32
PROVIDERS: ADMIT Internal Medicine; ATTEND Internal Medicine
DX: M51.17 Intervertebral disc disorders with radiculopathy, lumbosacral region (principal); M48.061 Spinal stenosis, lumbar region without neurogenic claudication; G40.909 Epilepsy, unspecified, not intractable, without status epilepticus; M25.78 Osteophyte, vertebrae; K21.9 Gastro-esophageal reflux disease without esophagitis; E66.9 Obesity, unspecified; Z68.25 Body mass index [BMI] 25.0-25.9, adult; Z79.899 Other long term (current) drug therapy
CPT/HCPCS: 36415; 72131; 80048; 81001; 85025; 96372; 96374; 96375; 97110; 97161; 97530; 99285; A9270; J1100; J1170; J1650; J1885; J2405; J2930; 96376; G0378

== ENCOUNTER 2021-02-16 18:48 | Emergency (ER) | payer BC ==
--- NOTE | 2021-02-16 19:10 | EDM.PDOC ---
ED HPI GENERAL MEDICAL PROBLEM - General Chief Complaint: Respiratory Problem Stated Complaint: GRAYSON REFERRAL, O2 CHECK Time Seen by Provider: 02/16/21 18:51 Source of Information: Reports: Patient History Limitations: Reports: No Limitations - History of Present Illness INITIAL COMMENTS - FREE TEXT/NARRATIVE: HISTORY AND PHYSICAL: History of present illness: Patient is a 55-year-old male who presents emergency room today with concern of known COVID-19 diagnosis with desire to get his vitals checked. Patient states that he was tested on Sunday for Covid, influenza, and strep and was told today that his COVID-19 came back positive. Patient states his primary care provider, Dr. Durant, is setting him up to receive monoclonal antibody infusions. Patient states that he came to the emergency room today in order to get his vitals checked due to known COVID-19 diagnosis. Patient denies any worsening symptoms. Patient denies fever, chills, chest pain, shortness of breath. Denies headache, neck stiff ness, change in vision, syncope, or near syncope. Denies nausea, vomiting, abdominal pain, diarrhea, constipation, or dysuria. Has not noted any blood in urine or stool. Patient has been eating and drinking appropriately. Review of systems: As per history of present illness and below otherwise all systems reviewed and negative. Past medical history: As per history of present illness and as reviewed below otherwise noncontributory. Surgical history: As per history of present illness and as reviewed below otherwise noncontributory. Social history: See social history for further information Family history: As per history of present illness and as reviewed below otherwise noncontributory. Physical exam: General: Patient is alert, oriented, and in no acute distress. Patient sitting comfortably on exam table. Vitals stable and reviewed by me. HEENT: Atraumatic, normocephalic, pupils equal and reactive bilaterally, negative for conjunctival pallor or scleral icterus, mucous membranes moist, throat clear, neck supple, nontender, trachea midline. No drooling or trismus noted. No meningeal signs. No hot potato voice noted. Lungs: Clear to auscultation, breath sounds equal bilaterally, chest nontender. Heart: S1S2, regular rate and rhythm without overt murmur Abdomen: Soft, nondistended, nontender. Negative for masses or hepatosplenomegaly. Negative for costovertebral tenderness. Pelvis: Stable nontender. Genitourinary: Deferred. Rectal: Deferred. Skin: Intact, warm, dry. No lesions or rashes noted. Extremities: Atraumatic, negative for cords or calf pain. Neurovascular unremarkable. Neuro: Awake, alert, oriented. Cranial nerves II through XII unremarkable. Cerebellum unremarkable. Motor and sensory unremarkable throughout. Exam nonfocal. Notes: Signs and symptoms that were prompt return to the ED thoroughly discussed with patient. Discussed importance for follow-up with a primary care provider. Voices understanding and is agreeable to plan of care. Denies any further questions or concerns at this time. Diagnostics: None Therapeutics: None Prescription: None Impression: COVID-19 viral infection Plan: 1. Your vital signs and oxygen saturation are well enough that you were able to monitor your symptoms at home. Continue to monitor for trouble breathing, new confusion or inability to arouse, bluish lips or face or any of the other symptoms we discussed -if this occurs please return to the emergency room.Continue to monitor your health at home for worsening symptoms so that you can be taken care of and treated quickly if needed. 2. Please self quarantine until 10 days have passed since your symptoms began AND you are fever free (<100.4 degrees fahrenheit) for 24 hours without the use of fever-reducing medications AND symptoms are improving. You should restrict activities outside of your home, except for getting medical care. Do not go to work, school, or public areas. Avoid using public transportation, ride-sharing, or taxis. Inform any persons that you have been in contact with since you started becoming symptomatic that you have tested positive; they should be made aware and take the appropriate steps as needed. 3. You may alternate Tylenol and ibuprofen as needed for pain and fever management. 4. The [facility] health department will be calling you and following up with you. The [place] COVID 19 Hotline phone number , They are open Sunday - Sunday 7am - 7pm. Follow up with your primary care provider for re-evaluation and re-testing after quarantine and discuss when you should be seen. 5. For more specific guidelines regarding isolation/quarantine please visit this website. https://www.health[place].gov/sites/www/files/documents/Files/CLAUDIA/coronavirus/Factsh eet_for_People_With_COVID-19.pdf Definitive disposition and diagnosis as appropriate pending reevaluation and review of above. body aches Pain Score (Numeric/FACES): 3 - Related Data Allergies Allergy/AdvReac Type Severity Reaction Status Date / Time No Known Allergies Allergy Verified 02/16/21 18:58 Home Meds: Home Meds Phenytoin Sodium Extended [Dilantin] 300 mg PO BID 07/13/15 [History] Acetaminophen/HYDROcodone [[place] 325-5 MG] 1 tab PO Q6H #1 tablet 10/18/17 [Rx] Cyclobenzaprine [Flexeril] 10 mg PO TID PRN #30 tablet 10/18/17 [Rx] Docusate Sodium [Colace] 100 mg PO BID #60 cap 10/18/17 [Rx] Gabapentin [Neurontin] 300 mg PO BID #60 capsule 10/18/17 [Rx] Naproxen [Naprosyn] 500 mg PO BIDMEALS tablet 10/18/17 [Rx] Pantoprazole [ProTONIX] 40 mg PO ACBREAKFAST #30 tab.cr 10/18/17 [Rx] polyethylene glycoL 3350 [MiraLAX] 17 gm PO Q72H PRN packet 10/18/17 [Rx] Past Medical History - Past Health History Medical/Surgical History: Denies Medical/Surgical History HEENT History: Reports: Other (See Below) Other HEENT History: wears glasses Cardiovascular History: Reports: None Respiratory History: Reports: None Gastrointestinal History: Reports: Cholelithiasis, GERD Genitourinary History: Reports: None Musculoskeletal History: Reports: Back Pain, Chronic Neurological History: Reports: Seizure Other Neuro History: Pt had 2 grand mal seizures 20 years ago and has not had one since. Psychiatric History: Reports: None Endocrine/Metabolic History: Reports: Obesity/BMI 30+ Hematologic History: Reports: None Immunologic History: Reports: None Oncologic (Cancer) History: Reports: None Dermatologic History: Reports: None - Infectious Disease History Infectious Disease History: Reports: Chicken Pox - Past Surgical History Head Surgeries/Procedures: Reports: None HEENT Surgical History: Reports: None Cardiovascular Surgical History: Reports: None Respiratory Surgical History: Reports: None GI Surgical History: Reports: Cholecystectomy Male Surgical History: Reports: None Endocrine Surgical History: Reports: None Neurological Surgical History: Reports: None Musculoskeletal Surgical History: Reports: Carpal Tunnel, Shoulder Surgery, Other (See Below) Other Musculoskeletal Surgeries/Procedures:: Low back surgery, rotator cuff repair Dermatological Surgical History: Reports: None Social & Family History - Family History Family Medical History: No Pertinent Family History HEENT: Reports: Hearing Impairment, Impaired Vision Cardiac: Reports: Afib, Heart Failure, High Cholesterol, Hypertension : Reports: Renal Disease/Insufficiency OBGYN: Reports: Musculoskeletal: Reports: Arthritis, Osteoarthritis, Osteoporosis Oncologic: Reports: Leukemia, Other (See Below) Other Oncologic Family History: throat cancer - Tobacco Use Tobacco Use Status *Q: Never Tobacco User Second Hand Smoke Exposure: No - Caffeine Use Caffeine Use: Reports: None - Recreational Drug Use Recreational Drug Use: No - Living Situation & Occupation Living situation: Reports: Single 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 ED EXAM, GENERAL - Physical Exam Exam: See Below (See dictation) Course - Vital Signs Last Recorded V/S: Last Vital Signs Temp 101.1 F H 02/16/21 18:56 Pulse 80 02/16/21 18:56 Resp 18 02/16/21 18:56 BP 145/73 H 02/16/21 18:56 Pulse Ox 95 02/16/21 18:56 Departure - Departure Time of Disposition: 19:09 Disposition: Home, Self-Care 01 Clinical Impression: COVID-19 virus infection - Discharge Information Referrals: Saman Durant MD [Primary Care Provider] - Forms: ED Department Discharge Additional Instructions: The following information is given to patients seen in the emergency department who are being discharged to home. This information is to outline your options for follow-up care. We provide all patients seen in our emergency department with a follow-up referral. The need for follow-up, as well as the timing and circumstances, are variable depending upon the specifics of your emergency department visit. If you don't have a primary care physician on staff, we will provide you with a referral. We always advise you to contact your personal physician following an emergency department visit to inform them of the circumstance of the visit and for follow-up with them and/or the need for any referrals to a consulting specialist. The emergency department will also refer you to a specialist when appropriate. This referral assures that you have the opportunity for follow-up care with a specialist. All of these measure are taken in an effort to provide you with opt imal care, which includes your follow-up. Under all circumstances we always encourage you to contact your private physician who remains a resource for coordinating your care. When calling for follow-up care, please make the office aware that this follow-up is from your recent emergency room visit. If for any reason you are refused follow-up, please contact the [facility] at and asked to speak to the emergency department charge nurse. [facility] [address] [place] [address] [facility] [address] [place] [id number] 1. Your vital signs and oxygen saturation are well enough that you were able to monitor your symptoms at home. Continue to monitor for trouble breathing, new confusion or inability to arouse, bluish lips or face or any of the other symptoms we discussed -if this occurs please return to the emergency room.Continue to monitor your health at home for worsening symptoms so that you can be taken care of and treated quickly if needed. 2. Please self quarantine until 10 days have passed since your symptoms began AND you are fever free (<100.4 degrees fahrenheit) for 24 hours without the use of fever-reducing medications AND symptoms are improving. You should restrict activities outside of your home, except for getting medical care. Do not go to work, school, or public areas. Avoid using public transportation, ride-sharing, or taxis. Inform any persons that you have been in contact with since you started becoming symptomatic that you have tested positive; they should be made aware and take the appropriate steps as needed. 3. You may alternate Tylenol and ibuprofen as needed for pain and fever management. 4. The [facility] department will be calling you and following up with you. The [place] [employer] Hotline phone number , They are open Sunday - Sunday 7am - 7pm. Follow up with your primary care provider for re-evaluation and re-testing after quarantine and discuss when you should be seen. 5. For more specific guidelines regarding isolation/quarantine please visit this website. https://www.health.[place].gov/sites/www/files/documents/Files/CLAUDIA/coronavirus/Factsh eet_for_People_With_COVID-19.pdf Sepsis Event Note (ED) - Evaluation Sepsis Screening Result: No Definite Risk - Focused Exam Vital Signs: Vital Signs Temp Pulse Resp BP Pulse Ox 02/16/21 18:56 101.1 F H 80 18 145/73 H 95
[2021-02-16 19:28] VITALS: BP 135/67; PULSE 95
== END 2021-02-16 19:29 | disposition home or self-care (01) ==
LOC: MW.ED 18:48
DX: U07.1 COVID-19 (principal); K21.9 Gastro-esophageal reflux disease without esophagitis; E66.9 Obesity, unspecified; Z68.41 Body mass index [BMI] 40.0-44.9, adult; Z79.899 Other long term (current) drug therapy
CPT/HCPCS: 99283